=== PATIENT | female | born 1930 | race African-American/Black ===

== ENCOUNTER 2020-03-18 17:46 | Inpatient (IN) | payer MEDICARE, BC ==
[2020-03-18 18:32] LABS: #Monocytes 0.4 thou/uL (0.11-0.59); #Neutrophils 4.6 thou/uL (1.40-6.50); %Basophils 0.7 % (0.0-1.0); %Eosinophils 0.4 % (0.0-10.0); %Lymphocytes 16.1 % (21.0-51.0); %Monocytes 6.7 % (0.0-10.0); %Neutrophils 76.1 % (42.0-75.0); Hemoglobin 13.1 g/dL (12.0-16.0); Mean Corpuscular Hemoglobin 30.8 pg (27.0-31.0); Mean Corpuscular Volume 93.4 fL (78.0-98.0); Platelet Count 192 thou/uL (130-400); RBC Distribution Width 12.1 % (11.5-14.5); Red Blood Cell (RBC) Count 4.26 mill/uL (4.20-5.40)
[2020-03-18 18:52] LABS: ALT (SGPT) Less than 7 U/L (8-55); AST (SGOT) 8 U/L (5-34); Alkaline Phosphatase 87 U/L (40-110); Anion Gap 16 mmol/L (10-20); BUN (Urea Nitrogen) 23 mg/dL (9.8-20.1); Bilirubin, Total 0.7 mg/dL (0.2-1.2); Calc. Creatinine Clearance 0 mL/min (70-130); Calcium 9.4 mg/dL (7.8-10.44); Carbon Dioxide 27 mmol/L (23-31); Chloride 100 mmol/L (98-107); Globulin 2.9 g/dL (2.4-3.5); Glucose 109 mg/dL (83-110); Potassium 3.9 mmol/L (3.5-5.1); Protein, Total 6.9 g/dL (6.0-8.3); Sodium 139 mmol/L (136-145)
[2020-03-18 19:54] LABS: Bacteria/HPF None Seen HPF (None Seen); Bilirubin Negative (Negative); Blood, Urine Negative (Negative); Clarity Clear (Clear); Glucose, Urine (Dipstick) Normal (Negative); Ketone, Urine 10 mg/dL (Negative); Leukocyte Negative Leu/uL (Negative); Nitrite Negative (Negative); Protein, Urine (Dipstick) 70 mg/dL (Neg-Trace); RBC/HPF 0-3 HPF (0-3); Specific Gravity, Urine 1.029 (1.002-1.036); Squamous Epithelial 0-3 HPF (0-3); Urobilinogen Normal mg/dL (Less than 2)
--- NOTE | 2020-03-18 20:56 | CT ---
CT BRAIN NONCONTRAST: DATE: 03/18/2020 HISTORY: 89-year-old female with altered mental status FINDINGS: There is no evidence of acute intra-axial or extra-axial hemorrhage. There is no midline shift or any other mass effect. There is no extra-axial fluid collection. There is no evidence of obstructive hydrocephalus. Calvarium is intact. There is diffuse brain parenchymal volume loss. There are low att enuation areas in the white matter. These are nonspecific, but in a patient of this age, they are probably chronic ischemic white matter changes due to microvascular atherosclerosis. IMPRESSION: 1) No acute intracranial findings. 2) involutional changes and chronic ischemic white matter changes.
--- NOTE | 2020-03-18 20:58 | RAD ---
Portable frontal chest radiograph: 03/18/2020 COMPARISON: None HISTORY: Altered mental status, urinary tract infection, hallucinations FINDINGS: There is prominence of the cardiac silhouette. There is atherosclerotic calcification of th e aortic arch. There is an old clavicle fracture on the left. There is mild diffuse increased linear interstitial density with pulmonary hyperinflation. IMPRESSION: No focal consolidation or alveolar edema.
[2020-03-18] MEDS ORDERED: cefTRIAXone\\ROCEPHIN 1 GM VIAL ONE (23:26)
[2020-03-19] MEDS ORDERED: Senokot S 8.6-50 MG TAB PO PRN (00:30)
[2020-03-19] MEDS ORDERED: Sodium Chloride 0.9% 1,000 ML IV SCH (00:30)
[2020-03-19 01:34] VITALS: BMI 18.8
--- NOTE | 2020-03-19 02:16 | HP ---
PCP: Unknown. CHIEF COMPLAINT: Altered mental status. HISTORY OF PRESENT ILLNESS: Ms. Tristan is a very pleasant 89-year-old female, who reported to the emergency room today for evaluation of altered mental status and a UTI. Daughter reports that the patient was diagnosed with a UTI 4 days ago, was started on Cipro, but when the daughter went to go pick her up today, she noticed that she was not at her normal baseline. She does have a history of dementia and Parkinson's, but she was not at her baseline and was having some hallucinations, so she wanted to have her evaluated. Daughter reports that her current symptoms happened with previous episodes of a UTI. Her ER workup was largely unremarkable. Urine protein positive for protein, ketones, or white blood cells. Culture was sent. She was given a dose of Rocephin in the emergency room. She was on Cipro as an outpatient and then admitted to the medical unit for further evaluation. She did have a CT scan of the brain, which showed no acute changes. She had a chest x-ray, which was also negative for acute changes. REVIEW OF SYSTEMS: Mental status changes recently diagnosed with the UTI. The patient is alert to person only, which is baseline. PAST MEDICAL HISTORY: Parkinson's, dementia, GERD, osteoporosis. SURGICAL HISTORY: Left knee surgery, appendectomy, hysterectomy, and tubal ligation. PSYCH HISTORY: Depression. SOCIAL HISTORY: Lives at [facility]. They denied any alcohol , drug, or smoking history. ALLERGIES: NONE. CURRENT MEDICATIONS: 1. Amantadine 100 mg p.o. b.i.d. 2. Aspirin 81 mg p.o. b.i.d. 3. Levodopa and carbidopa 25/100 b.i.d. 4. Cipro 500 mg p.o. b.i.d. 5. Colace 100 mg three times a week. 6. Vitamin B12 once a day. 7. Lexapro 10 mg p.o. once a day. 8. Pepcid 20 mg p.o. once a day. 9. Keflex 500 mg p.o. b.i.d. 10. Milk of magnesium 1 cup p.r.n. PHYSICAL EXAMINATION: VITAL SIGNS: Blood pressure 154/68, pulse is 59, respiratory rate is 18, temperature is 97.9, PO2 sats are 98% on room air. CONSTITUTIONAL: The patient is oriented to person. She does answer questions appropriately. She denied being in any pain. HEENT: Head is atraumatic and normocephalic. Eyes, pupils are equal, round, and reactive to light. NECK: Normal range of motion. Trachea is midline. RESPIRATORY: Chest breath sounds are clear. Chest expansion is equal. CARDIOVASCULAR: Regular rate and rhythm. Heart sounds are normal. ABDOMEN: Nontender. Bowel sounds are heard. BACK: Normal range of motion. Motor strength is normal. EXTREMITIES: Moves all extremities. Pulses are equal. NEURO: She is oriented to person. PLAN/ASSESSMENT: 1. Altered mental status with recent diagnosis of urinary tract infection. Urine culture is pending. ER gave the patient Rocephin 1 g. We will continue this daily. Normal saline at 75 mL an hour. Recheck labs in the morning. Urine culture pending. We will have PT consulted. 2. History of dementia. We will continue her home medications. 3. History of Parkinson's. We will continue her home medications. 4. Deep venous thrombosis and gastrointestinal prophylaxis started. 5. Hospital course dependent on clinical findings. Job ID: [id number]
[2020-03-19] MEDS ORDERED: Milk Of Magnesia 30 ML UDCUP PO PRN (04:51)
[2020-03-19 06:21] LABS: #Lymphocytes 0.9 thou/uL (1.20-3.40); #Monocytes 0.4 thou/uL (0.11-0.59); #Neutrophils 4.1 thou/uL (1.40-6.50); %Basophils 0.7 % (0.0-1.0); %Eosinophils 0.2 % (0.0-10.0); %Monocytes 6.9 % (0.0-10.0); %Neutrophils 75.2 % (42.0-75.0); Hemoglobin 12.8 g/dL (12.0-16.0); Mean Corpuscular HGB CONC 33.5 g/dL (32.0-36.0); Mean Corpuscular Hemoglobin 30.9 pg (27.0-31.0); Mean Corpuscular Volume 92.1 fL (78.0-98.0); Mean Platelet Volume 8.9 fL (7.4-10.4); Platelet Count 180 thou/uL (130-400); RBC Distribution Width 11.9 % (11.5-14.5); Red Blood Cell (RBC) Count 4.14 mill/uL (4.20-5.40); White Blood Cell (WBC) Count 5.4 thou/uL (4.8-10.8)
[2020-03-19 06:49] LABS: ALT (SGPT) Less than 7 U/L (8-55); AST (SGOT) 8 U/L (5-34); Albumin 3.7 g/dL (3.4-4.8); Alkaline Phosphatase 85 U/L (40-110); Anion Gap 16 mmol/L (10-20); BUN (Urea Nitrogen) 15 mg/dL (9.8-20.1); Bilirubin, Total 0.6 mg/dL (0.2-1.2); Calc. Creatinine Clearance 46 mL/min (70-130); Calcium 8.7 mg/dL (7.8-10.44); Carbon Dioxide 24 mmol/L (23-31); Chloride 102 mmol/L (98-107); Globulin 2.8 g/dL (2.4-3.5); Glucose 93 mg/dL (83-110); Potassium 3.3 mmol/L (3.5-5.1); Protein, Total 6.5 g/dL (6.0-8.3); Sodium 139 mmol/L (136-145)
[2020-03-19] MEDS: Cyanocobalamin (Vitamin B-12) 1,000 MCG TAB PO SCH (08:21)
[2020-03-19] MEDS: Amantadine HCl 100 mg Capsule PO SCH ×2 (08:21→20:35)
[2020-03-19] MEDS: Aspirin 81 mg Enteric Coated Tablet PO SCH (08:21)
[2020-03-19] MEDS: Enoxaparin Sodium 40 MG/0.4 ML SYRINGE SC SCH (08:22)
[2020-03-19] MEDS: Famotidine 20 MG TAB PO SCH ×2 (08:22→21:05)
[2020-03-19] MEDS: Escitalopram Oxalate 10 mg Tablet PO SCH (08:22)
[2020-03-19] MEDS: Carbidopa/Levodopa 25-100 mg Tablet PO SCH ×4 (08:22→20:35)
--- NOTE | 2020-03-19 14:23 | PDOC.HOSPP ---
- Subjective Encounter Date: 03/19/20 Encounter Time: 10:20 Subjective: Patient up in bed oriented x2 - Objective Vital Signs & Weight: Vital Signs (12 hours) Temp Pulse Resp BP BP Pulse Ox 03/19/20 11:50 97.7 F 62 18 142/58 H 97 03/19/20 08:00 97.6 F 64 18 178/74 H 96 03/19/20 04:45 98.2 F 72 16 120/72 98 Weight Weight 103 lb 4.8 oz Result Diagrams: 03/19/20 06:03 03/19/20 06:03 Hospitalist ROS - Review of Systems Cardiovascular: denies: chest pain, palpitations, orthopnea, paroxysmal noc. dyspnea, edema, light headedness, other Gastrointestinal: denies: nausea, vomiting, abdominal pain, diarrhea, constipation, melena, hematochezia, other Genitourinary: denies: dysuria, frequency, incontinence, hematuria, retention, other - Medication Medications: Active Medications Generic Name Dose Route Start Last Admin Trade Name Freq PRN Reason Stop Dose Admin Amantadine HCl 100 mg 03/19/20 09:00 03/19/20 08:21 Amantadine Hcl 100 Mg Capsule PO 100 mg BID DHARMESH Administration Aspirin 81 mg 03/19/20 09:00 03/19/20 08:21 Aspirin 81 Mg Enteric Coated Tablet PO 81 mg DAILY DHARMESH Administration Carbidopa/Levodopa 2 tab 03/19/20 09:00 03/19/20 08:22 Carbidopa/Levodopa 25-100 Mg Tablet PO 2 tab Q4HR DHARMESH Administration Cyanocobalamin 1,000 mcg 03/19/20 09:00 03/19/20 08:21 Cyanocobalamin (Vitamin B-12) 1,000 Mcg Tab PO 1,000 mcg DAILY DHARMESH Administration Enoxaparin Sodium 40 mg 03/19/20 09:00 03/19/20 08:22 Enoxaparin Sodium 40 Mg/0.4 Ml Syringe SC 40 mg 09 DHARMESH Administration Escitalopram Oxalate 10 mg 03/19/20 09:00 03/19/20 08:22 Escitalopram Oxalate 10 Mg Tablet PO 10 mg DAILY DHARMESH Administration Famotidine 20 mg 03/19/20 09:00 03/19/20 08:22 Famotidine 20 Mg Tab PO 20 mg BID DHARMESH Administration - Exam Neck: negative: supple, symmetric, no JVD, no thyromegaly, no lymphadenopathy, no carotid bruit, JVD Heart: negative: RRR, no murmur, no gallops, no rubs, normal peripheral pulses, irregular, diminshed peripheral pulses, murmur present, II/IV, III/IV Respiratory: negative: CTAB, no wheezes, no rales, no ronchi, normal chest expansion, no tachypnea, normal percussion, rales, rhonchi, tachypneic, wheezes Gastrointestinal: negative: soft, non-tender, non-distended, normal bowel sounds, no palpable masses, no hepatomegaly, no splenomegaly, no bruit, no guarding, no rigidity, tender to palpation, distended, diminished bowl sounds, voluntary guarding Hosp A/P (1) Acute metabolic encephalopathy Code(s): G93.41 - METABOLIC ENCEPHALOPATHY Status: Acute (2) UTI (urinary tract infection) Status: Acute (3) Dementia Code(s): F03.90 - UNSPECIFIED DEMENTIA WITHOUT BEHAVIORAL DISTURBANCE Status: Acute (4) Vitamin B1 deficiency Code(s): E51.9 - THIAMINE DEFICIENCY, UNSPECIFIED Status: Acute - Plan Patient up in bed oriented x2. Daughter at bedside. We will continue current antibiotics. Urine culture indicates E. coli. Will get speech to to evaluate patient.
[2020-03-19 20:10] LABS: SARS-CoV-2 MS2 Positive; SARS-CoV-2 N Gene Negative; SARS-CoV-2 S Gene Negative; SARS-CoV-2 by NAA Not Detected (NotDetected); SARS-CoV-2 orf1ab Negative
[2020-03-19] MEDS: Acetaminophen 325 MG TAB PO PRN (20:36)
[2020-03-19] MEDS: cefTRIAXone\\ROCEPHIN 1 GM in Sodium Chloride 0.9% 100 ML IVPB SCH (20:48)
[2020-03-19] MEDS ORDERED: FLU VACC QS2020-21(65YR UP)/PF 240 MCG/0.7 ML SYRINGE IM ONE (21:00)
[2020-03-20] MEDS: Carbidopa/Levodopa 25-100 mg Tablet PO SCH ×6 (00:44→21:30)
[2020-03-20] MEDS: Escitalopram Oxalate 10 mg Tablet PO SCH (09:14)
[2020-03-20] MEDS: Enoxaparin Sodium 40 MG/0.4 ML SYRINGE SC SCH (09:15)
[2020-03-20] MEDS: Amantadine HCl 100 mg Capsule PO SCH ×2 (09:15→21:30)
[2020-03-20] MEDS: Aspirin 81 mg Enteric Coated Tablet PO SCH (09:15)
[2020-03-20] MEDS: Cyanocobalamin (Vitamin B-12) 1,000 MCG TAB PO SCH ×2 (09:15→13:23)
[2020-03-20] MEDS ORDERED: Potassium Chloride 10 MEQ in Premix Bag 1 BAG IVPB SCH (09:15)
[2020-03-20] MEDS: Docusate 100 MG CAP PO SCH (09:15)
[2020-03-20] MEDS: Dextrose 5 % And 0.9 % NaCl 1,000 ML IV SCH (10:47)
[2020-03-20] MEDS ORDERED: Cyanocobalamin 1000 MCG/ML VIAL IM SCH (11:00)
[2020-03-20] MEDS: Famotidine 20 MG TAB PO SCH (11:04)
--- NOTE | 2020-03-20 13:46 | PDOC.HOSPP ---
- Subjective Encounter Date: 03/20/20 Encounter Time: 10:30 Subjective: pt up in bed oriented x2 - Objective Vital Signs & Weight: Vital Signs (12 hours) Temp Pulse Resp BP Pulse Ox 03/20/20 11:30 97.6 F 52 L 18 137/57 L 98 03/20/20 08:45 94 L 03/20/20 07:27 97.6 F 53 L 16 168/70 H 94 L 03/20/20 05:36 98 03/20/20 05:00 97.8 F 65 18 149/76 H 98 Weight Weight 103 lb 4.8 oz I&O: 03/19/20 03/20/20 03/21/20 06:59 06:59 06:59 Intake Total 500 Output Total 1100 Balance -600 Result Diagrams: 03/19/20 06:03 03/19/20 06:03 Hospitalist ROS - Review of Systems Cardiovascular: denies: chest pain, palpitations, orthopnea, paroxysmal noc. dyspnea, edema, light headedness, other Gastrointestinal: denies: nausea, vomiting, abdominal pain, diarrhea, constipation, melena, hematochezia, other - Medication Medications: Active Medications Generic Name Dose Route Start Last Admin Trade Name Freq PRN Reason Stop Dose Admin Acetaminophen 650 mg 03/19/20 00:30 03/19/20 20:36 Acetaminophen 325 Mg Tab PO 650 mg Q4H PRN Administration Headache/Fever/Mild Pain (1-3) Amantadine HCl 100 mg 03/19/20 09:00 03/20/20 09:15 Amantadine Hcl 100 Mg Capsule PO Not Given BID DHARMESH Aspirin 81 mg 03/19/20 09:00 03/20/20 09:15 Aspirin 81 Mg Enteric Coated Tablet PO Not Given DAILY DHARMESH Carbidopa/Levodopa 2 tab 03/19/20 09:00 03/20/20 13:23 Carbidopa/Levodopa 25-100 Mg Tablet PO 2 tab Q4HR DHARMESH Administration Cyanocobalamin 1,000 mcg 03/19/20 09:00 03/20/20 13:23 Cyanocobalamin (Vitamin B-12) 1,000 Mcg Tab PO 1,000 mcg DAILY DHARMESH Administration Docusate Sodium 100 mg 03/20/20 09:00 03/20/20 09:15 Docusate 100 Mg Cap PO Not Given MWF DHARMESH Enoxaparin Sodium 40 mg 03/19/20 09:00 03/20/20 09:15 Enoxaparin Sodium 40 Mg/0.4 Ml Syringe SC 40 mg 09 DHARMESH Administration Escitalopram Oxalate 10 mg 03/19/20 09:00 03/20/20 09:14 Escitalopram Oxalate 10 Mg Tablet PO 10 mg DAILY DHARMESH Administration Ceftriaxone Sodium 1 gm/ 100 mls @ 200 mls/hr 03/19/20 21:00 03/19/20 20:48 Sodium Chloride IVPB 100 mls Q24HR DHARMESH Administration Dextrose/Sodium Chloride 1,000 mls @ 50 mls/hr 03/20/20 09:15 03/20/20 10:47 D5 0.9% Ns IV 1,000 mls .Q20H DHARMESH Administration - Exam Heart: negative: RRR, no murmur, no gallops, no rubs, normal peripheral pulses, irregular, diminshed peripheral pulses, murmur present, II/IV, III/IV Respiratory: negative: CTAB, no wheezes, no rales, no ronchi, normal chest expansion, no tachypnea, normal percussion, rales, rhonchi, tachypneic, wheezes Gastrointestinal: negative: soft, non-tender, non-distended, normal bowel sounds, no palpable masses, no hepatomegaly, no splenomegaly, no bruit, no guarding, no rigidity, tender to palpation, distended, diminished bowl sounds, voluntary guarding Hosp A/P (1) Acute metabolic encephalopathy Code(s): G93.41 - METABOLIC ENCEPHALOPATHY Status: Acute (2) UTI (urinary tract infection) Status: Acute (3) Dementia Code(s): F03.90 - UNSPECIFIED DEMENTIA WITHOUT BEHAVIORAL DISTURBANCE Status: Acute (4) Vitamin B1 deficiency Code(s): E51.9 - THIAMINE DEFICIENCY, UNSPECIFIED Status: Acute - Plan Patient up in bed oriented x2. Daughter at bedside. We will continue current antibiotics. Urine culture indicates E. coli. Will get speech to to evaluate patient. 03/20 will continue current tx. Speech saw the pt who recommended initially npo given her high risk for aspiration but then when pt's daughter came by she was more awake and we reevaluated her and she was able to tolerate pureed diet with honey thick liquids. spoke with case management that pt will need a high level of care. Plan discussed with pt's daughter.
--- NOTE | 2020-03-20 14:02 | PDOC.FMACP ---
Advance Care Planning - Problem (1) Acute metabolic encephalopathy Status: Acute Code(s): G93.41 - METABOLIC ENCEPHALOPATHY (2) UTI (urinary tract infection) Status: Acute (3) Dementia Status: Acute Code(s): F03.90 - UNSPECIFIED DEMENTIA WITHOUT BEHAVIORAL DISTURBANCE (4) Vitamin B1 deficiency Status: Acute Code(s): E51.9 - THIAMINE DEFICIENCY, UNSPECIFIED - Note Summary: Advanced Care Planning was discussed. The diagnosis, prognosis and goals of care were discussed. Appropriate forms and documentation to accomplish the goals of care were discussed. All questions were answered. The Palliative Care Team will be engaged to assist with completion of any outstanding forms that are needed. spoke with pt's son about resuscitation given her dementia outcome would not be good. Family wants pt to be DNAR. spend 20m discussing CODE STATUS with family.
--- NOTE | 2020-03-20 16:17 | ULT ---
LEFT LOWER EXTREMITY VENOUS DOPPLER 03/20/20 PROVIDED CLINICAL HISTORY: Left leg pain. FINDINGS: Og scale and color Doppler sonography with spectral analysis was performed of the left common femor al, femoral, popliteal, posterior tibial, greater saphenous and profunda femoral veins demonstrating normal sonographic appearance to each. IMPRESSION: No sonographic evidence for left lower extremity deep venous thrombosis. POS: MATY
[2020-03-20] MEDS: Acetaminophen 325 MG TAB PO PRN (17:25)
[2020-03-20] MEDS: cefTRIAXone\\ROCEPHIN 1 GM in Sodium Chloride 0.9% 100 ML IVPB SCH (21:31)
[2020-03-20] MEDS: Famotidine/PF 20 mg/2ml Vial SLOW IVP SCH (21:31)
[2020-03-21] MEDS: Carbidopa/Levodopa 25-100 mg Tablet PO SCH ×6 (01:41→20:36)
[2020-03-21] MEDS: Dextrose 5 % And 0.9 % NaCl 1,000 ML IV SCH (05:34)
[2020-03-21] MEDS: Cyanocobalamin (Vitamin B-12) 1,000 MCG TAB PO SCH (09:00)
[2020-03-21] MEDS: Escitalopram Oxalate 10 mg Tablet PO SCH (09:00)
[2020-03-21] MEDS: Enoxaparin Sodium 40 MG/0.4 ML SYRINGE SC SCH (09:00)
[2020-03-21] MEDS: Aspirin 81 mg Enteric Coated Tablet PO SCH (09:00)
[2020-03-21] MEDS: Famotidine/PF 20 mg/2ml Vial SLOW IVP SCH ×2 (09:00→20:36)
[2020-03-21] MEDS: Amantadine HCl 100 mg Capsule PO SCH ×2 (09:07→20:36)
--- NOTE | 2020-03-21 15:36 | PDOC.HOSPP ---
- Subjective Encounter Date: 03/21/20 Encounter Time: 11:15 Subjective: Patient up in bed oriented x1 continues to speak very softly. - Objective Vital Signs & Weight: Vital Signs (12 hours) Temp Pulse Resp BP Pulse Ox 03/21/20 09:00 96 03/21/20 08:00 98.0 F 60 16 164/83 H 96 Weight Admit Weight 103 lb Weight 103 lb 4.8 oz I&O: 03/20/20 03/21/20 03/22/20 06:59 06:59 06:59 Intake Total 500 1540 Output Total 1100 550 Balance -600 990 Result Diagrams: 03/19/20 06:03 03/19/20 06:03 Hospitalist ROS - Review of Systems Other: Unable to obtain - Medication Medications: Active Medications Generic Name Dose Route Start Last Admin Trade Name Freq PRN Reason Stop Dose Admin Acetaminophen 650 mg 03/19/20 00:30 03/20/20 17:25 Acetaminophen 325 Mg Tab PO 650 mg Q4H PRN Administration Headache/Fever/Mild Pain (1-3) Amantadine HCl 100 mg 03/19/20 09:00 03/21/20 09:07 Amantadine Hcl 100 Mg Capsule PO 100 mg BID DHARMESH Administration Aspirin 81 mg 03/19/20 09:00 03/21/20 09:00 Aspirin 81 Mg Enteric Coated Tablet PO 81 mg DAILY DHARMESH Administration Carbidopa/Levodopa 2 tab 03/19/20 09:00 03/21/20 13:35 Carbidopa/Levodopa 25-100 Mg Tablet PO 2 tab Q4HR DHARMESH Administration Cyanocobalamin 1,000 mcg 03/19/20 09:00 03/21/20 09:00 Cyanocobalamin (Vitamin B-12) 1,000 Mcg Tab PO 1,000 mcg DAILY DHARMESH Administration Docusate Sodium 100 mg 03/20/20 09:00 03/20/20 09:15 Docusate 100 Mg Cap PO Not Given MW DHARMESH Enoxaparin Sodium 40 mg 03/19/20 09:00 03/21/20 09:00 Enoxaparin Sodium 40 Mg/0.4 Ml Syringe SC 40 mg 0900 DHARMESH Administration Escitalopram Oxalate 10 mg 03/19/20 09:00 03/21/20 09:00 Escitalopram Oxalate 10 Mg Tablet PO 10 mg DAILY DHARMESH Administration Famotidine 20 mg 03/20/20 21:00 03/21/20 09:00 Famotidine/Pf 20 Mg/2ml Vial SLOW IVP 20 mg BID DHARMESH Administration Ceftriaxone Sodium 1 gm/ 100 mls @ 200 mls/hr 03/19/20 21:00 03/20/20 21:31 Sodium Chloride IVPB 100 mls Q24HR DHARMESH Administration Dextrose/Sodium Chloride 1,000 mls @ 50 mls/hr 03/20/20 09:15 03/21/20 05:34 D5 0.9% Ns IV 1,000 mls .Q20H DHARMESH Administration Sodium Chloride 10 ml 03/20/20 21:00 03/21/20 09:01 Flush - Normal Saline 10 Ml Syringe IVF Not Given Q12HR DHARMESH - Exam Heart: negative: RRR, no murmur, no gallops, no rubs, normal peripheral pulses, irregular, diminshed peripheral pulses, murmur present, II/IV, III/IV Respiratory: negative: CTAB, no wheezes, no rales, no ronchi, normal chest expansion, no tachypnea, normal percussion, rales, rhonchi, tachypneic, wheezes Gastrointestinal: negative: soft, non-tender, non-distended, normal bowel sounds, no palpable masses, no hepatomegaly, no splenomegaly, no bruit, no guarding, no rigidity, tender to palpation, distended, diminished bowl sounds, voluntary guarding Extremities: 1+ LE edema Hosp A/P (1) Acute metabolic encephalopathy Code(s): G93.41 - METABOLIC ENCEPHALOPATHY Status: Acute (2) UTI (urinary tract infection) Status: Acute (3) Dementia Code(s): F03.90 - UNSPECIFIED DEMENTIA WITHOUT BEHAVIORAL DISTURBANCE Status: Acute (4) Vitamin B1 deficiency Code(s): E51.9 - THIAMINE DEFICIENCY, UNSPECIFIED Status: Acute - Plan Patient up in bed oriented x2. Daughter at bedside. We will continue current antibiotics. Urine culture indicates E. coli. Will get speech to to evaluate patient. 03/20 will continue current tx. Speech saw the pt who recommended initially npo given her high risk for aspiration but then when pt's daughter came by she was more awake and we reevaluated her and she was able to tolerate pureed diet with honey thick liquids. spoke with case management that pt will need a high level of care. Plan discussed with pt's daughter. 03/21 per nursing staff patient ate about 30% of her food. She is oriented currently only to self. We will continue current antibiotics. Her previous E. coli was resistant to ciprofloxacin. Possible discharge to higher level of [facility]. Have asked the nursing staff to get patient up in chair.
[2020-03-21] MEDS: cefTRIAXone\\ROCEPHIN 1 GM in Sodium Chloride 0.9% 100 ML IVPB SCH (20:36)
[2020-03-22] MEDS: Carbidopa/Levodopa 25-100 mg Tablet PO SCH ×6 (00:32→20:00)
[2020-03-22] MEDS: Dextrose 5 % And 0.9 % NaCl 1,000 ML IV SCH ×3 (00:37→20:09)
[2020-03-22] MEDS: Enoxaparin Sodium 40 MG/0.4 ML SYRINGE SC SCH (08:22)
[2020-03-22] MEDS: Famotidine/PF 20 mg/2ml Vial SLOW IVP SCH ×2 (08:22→20:01)
[2020-03-22] MEDS: Cyanocobalamin (Vitamin B-12) 1,000 MCG TAB PO SCH (08:23)
[2020-03-22] MEDS: Amantadine HCl 100 mg Capsule PO SCH ×2 (08:23→20:01)
[2020-03-22] MEDS: Escitalopram Oxalate 10 mg Tablet PO SCH (08:23)
[2020-03-22] MEDS: Aspirin 81 mg Enteric Coated Tablet PO SCH (08:23)
--- NOTE | 2020-03-22 16:51 | PDOC.HOSPP ---
- Subjective Encounter Date: 03/22/20 Encounter Time: 11:15 Subjective: pt asleep - Objective Vital Signs & Weight: Vital Signs (12 hours) Temp Pulse Resp BP Pulse Ox 03/22/20 08:00 97.1 F L 69 16 145/74 H 97 Weight Admit Weight 103 lb Weight 103 lb 4.8 oz I&O: 03/21/20 03/22/20 03/23/20 06:59 06:59 06:59 Intake Total 1540 1696 Output Total 550 1050 Balance 990 646 Result Diagrams: 03/19/20 06:03 03/19/20 06:03 Hospitalist ROS - Review of Systems Other: unable to obtain - Medication Medications: Active Medications Generic Name Dose Route Start Last Admin Trade Name Freq PRN Reason Stop Dose Admin Acetaminophen 650 mg 03/19/20 00:30 03/20/20 17:25 Acetaminophen 325 Mg Tab PO 650 mg Q4H PRN Administration Headache/Fever/Mild Pain (1-3) Amantadine HCl 100 mg 03/19/20 09:00 03/22/20 08:23 Amantadine Hcl 100 Mg Capsule PO 100 mg BID DHARMESH Administration Aspirin 81 mg 03/19/20 09:00 03/22/20 08:23 Aspirin 81 Mg Enteric Coated Tablet PO 81 mg DAILY DHARMESH Administration Carbidopa/Levodopa 2 tab 03/19/20 09:00 03/22/20 16:06 Carbidopa/Levodopa 25-100 Mg Tablet PO 2 tab Q4HR DHARMESH Administration Cyanocobalamin 1,000 mcg 03/19/20 09:00 03/22/20 08:23 Cyanocobalamin (Vitamin B-12) 1,000 Mcg Tab PO 1,000 mcg DAILY DHARMESH Administration Docusate Sodium 100 mg 03/20/20 09:00 03/20/20 09:15 Docusate 100 Mg Cap PO Not Given [facility] DHARMESH Enoxaparin Sodium 40 mg 03/19/20 09:00 03/22/20 08:22 Enoxaparin Sodium 40 Mg/0.4 Ml Syringe SC 40 mg 09 DHARMESH Administration Escitalopram Oxalate 10 mg 03/19/20 09:00 03/22/20 08:23 Escitalopram Oxalate 10 Mg Tablet PO 10 mg DAILY DHARMESH Administration Famotidine 20 mg 03/20/20 21:00 03/22/20 08:22 Famotidine/Pf 20 Mg/2ml Vial SLOW IVP 20 mg BID DHARMESH Administration Ceftriaxone Sodium 1 gm/ 100 mls @ 200 mls/hr 03/19/20 21:00 03/21/20 20:36 Sodium Chloride IVPB 100 mls Q24HR DHARMESH Administration Dextrose/Sodium Chloride 1,000 mls @ 50 mls/hr 03/20/20 09:15 03/22/20 00:37 D5 0.9% Ns IV 1,000 mls .Q20H DHARMESH Administration Sodium Chloride 10 ml 03/20/20 21:00 03/22/20 08:23 Flush - Normal Saline 10 Ml Syringe IVF 10 ml Q12HR DHARMESH Administration - Exam Neck: negative: supple, symmetric, no JVD, no thyromegaly, no lymphadenopathy, no carotid bruit, JVD Heart: negative: RRR, no murmur, no gallops, no rubs, normal peripheral pulses, irregular, diminshed peripheral pulses, murmur present, II/IV, III/IV Respiratory: negative: CTAB, no wheezes, no rales, no ronchi, normal chest expansion, no tachypnea, normal percussion, rales, rhonchi, tachypneic, wheezes Gastrointestinal: negative: soft, non-tender, non-distended, normal bowel sounds, no palpable masses, no hepatomegaly, no splenomegaly, no bruit, no guarding, no rigidity, tender to palpation, distended, diminished bowl sounds, voluntary guarding Hosp A/P (1) Acute metabolic encephalopathy Code(s): G93.41 - METABOLIC ENCEPHALOPATHY Status: Acute (2) UTI (urinary tract infection) Status: Acute (3) Dementia Code(s): F03.90 - UNSPECIFIED DEMENTIA WITHOUT BEHAVIORAL DISTURBANCE Status: Acute (4) Vitamin B1 deficiency Code(s): E51.9 - THIAMINE DEFICIENCY, UNSPECIFIED Status: Acute - Plan Patient up in bed oriented x2. Daughter at bedside. We will continue current antibiotics. Urine culture indicates E. coli. Will get speech to to evaluate patient. 03/20 will continue current tx. Speech saw the pt who recommended initially npo given her high risk for aspiration but then when pt's daughter came by she was more awake and we reevaluated her and she was able to tolerate pureed diet with honey thick liquids. spoke with case management that pt will need a high level of care. Plan discussed with pt's daughter. 03/21 per nursing staff patient ate about 30% of her food. She is oriented currently only to self. We will continue current antibiotics. Her previous E. coli was resistant to ciprofloxacin. Possible discharge to higher level of nursing care. Have asked the nursing staff to get patient up in chair. 03/22 patient sleeping today. We will continue current antibiotics. Patient was assisted up to chair by nursing staff yesterday she was a max assist per staff. We will continue current antibiotics.
[2020-03-22] MEDS: cefTRIAXone\\ROCEPHIN 1 GM in Sodium Chloride 0.9% 100 ML IVPB SCH (20:05)
[2020-03-23] MEDS: Carbidopa/Levodopa 25-100 mg Tablet PO SCH ×7 (00:48→20:22)
[2020-03-23 06:49] LABS: Band 38 % (5-11); Hemoglobin 11.4 g/dL (12.0-16.0); Lymphocytes 4 % (21-51); MDiff Complete? YES; Mean Corpuscular HGB CONC 33.4 g/dL (32.0-36.0); Mean Corpuscular Hemoglobin 30.6 pg (27.0-31.0); Mean Corpuscular Volume 91.6 fL (78.0-98.0); Mean Platelet Volume 9.5 fL (7.4-10.4); Neutrophil 58 % (42-75); Platelet Count 156 thou/uL (130-400); Platelet Morphology Comment Appears Adequate; RBC Distribution Width 11.9 % (11.5-14.5); Red Blood Cell (RBC) Count 3.72 mill/uL (4.20-5.40); White Blood Cell (WBC) Count 14.3 thou/uL (4.8-10.8)
[2020-03-23 06:50] LABS: ALT (SGPT) Less than 7 U/L (8-55); AST (SGOT) 9 U/L (5-34); Albumin 3.2 g/dL (3.4-4.8); Alkaline Phosphatase 79 U/L (40-110); Anion Gap 10 mmol/L (10-20); BUN (Urea Nitrogen) 13 mg/dL (9.8-20.1); Bilirubin, Total 0.6 mg/dL (0.2-1.2); Calc. Creatinine Clearance 52 mL/min (70-130); Calcium 8.3 mg/dL (7.8-10.44); Carbon Dioxide 28 mmol/L (23-31); Chloride 105 mmol/L (98-107); Globulin 2.5 g/dL (2.4-3.5); Glucose 151 mg/dL (83-110); Magnesium 1.5 mg/dL (1.6-2.6); Protein, Total 5.7 g/dL (6.0-8.3); Sodium 141 mmol/L (136-145)
[2020-03-23 06:54] LABS: Potassium 2.4 mmol/L (3.5-5.1)
[2020-03-23] MEDS ORDERED: Potassium Chloride 10 MEQ in Premix Bag 1 BAG IVPB SCH ×2 (08:15→11:15)
[2020-03-23] MEDS: Enoxaparin Sodium 40 MG/0.4 ML SYRINGE SC SCH (08:31)
[2020-03-23] MEDS: Famotidine/PF 20 mg/2ml Vial SLOW IVP SCH ×2 (08:31→20:17)
[2020-03-23] MEDS: Potassium Chloride 20 MEQ TAB PO SCH ×2 (08:32→10:55)
[2020-03-23] MEDS: Docusate 100 MG CAP PO SCH ×2 (08:32→09:04)
[2020-03-23] MEDS: Amantadine HCl 100 mg Capsule PO SCH ×3 (08:32→20:21)
[2020-03-23] MEDS: Escitalopram Oxalate 10 mg Tablet PO SCH ×2 (08:32→09:04)
[2020-03-23] MEDS: Cyanocobalamin (Vitamin B-12) 1,000 MCG TAB PO SCH ×2 (08:32→09:04)
[2020-03-23] MEDS: Aspirin 81 mg Enteric Coated Tablet PO SCH ×2 (08:32→09:04)
[2020-03-23] MEDS ORDERED: Cyanocobalamin 1000 MCG/ML VIAL IM SCH (11:15)
--- NOTE | 2020-03-23 11:53 | RAD ---
Exam: Chest one view HISTORY:Shortness of breath Comparison: 03/18/2020 FINDINGS: Cardiac silhouette: Normal Aorta: Atherosclerotic Pulmonary vessels: Normal Costophrenic angles: Clear LUNGS: Hyperinflated with chronic changes. There is a developing left lower lobe infiltrate. Pneumothorax: None Osseous abnormalities: Remote left clavicle fracture. IMPRESSION: 1. COPD. Hyperinflation. 2. Left lower lobe infiltrate. Continued surveillance to ensure resolution. 3. Atherosclerosis.
--- NOTE | 2020-03-23 15:07 | PDOC.HOSPP ---
- Subjective Encounter Date: 03/23/20 Encounter Time: 10:30 Subjective: Patient very somnolent. She is arousable on sternal rub and follows commands. She continues to be speaking very softly. - Objective Vital Signs & Weight: Vital Signs (12 hours) Temp Pulse Resp BP Pulse Ox 03/23/20 08:00 94 L 03/23/20 07:34 98.0 F 58 L 16 135/60 94 L Weight Admit Weight 103 lb Weight 103 lb 4.8 oz I&O: 03/22/20 03/23/20 03/24/20 06:59 06:59 06:59 Intake Total 1696 1350 Output Total 1050 Balance 646 1350 Result Diagrams: 03/23/20 06:04 03/23/20 06:04 Hospitalist ROS - Review of Systems Other: Unable to obtain - Medication Medications: Active Medications Generic Name Dose Route Start Last Admin Trade Name Freq PRN Reason Stop Dose Admin Acetaminophen 650 mg 03/19/20 00:30 03/20/20 17:25 Acetaminophen 325 Mg Tab PO 650 mg Q4H PRN Administration Headache/Fever/Mild Pain (1-3) Amantadine HCl 100 mg 03/19/20 09:00 03/23/20 09:04 Amantadine Hcl 100 Mg Capsule PO Not Given BID DHARMESH Aspirin 81 mg 03/19/20 09:00 03/23/20 09:04 Aspirin 81 Mg Enteric Coated Tablet PO Not Given DAILY DHARMESH Carbidopa/Levodopa 2 tab 03/19/20 09:00 03/23/20 13:11 Carbidopa/Levodopa 25-100 Mg Tablet PO 2 tab Q4HR DHARMESH Administration Cyanocobalamin 1,000 mcg 03/19/20 09:00 03/23/20 09:04 Cyanocobalamin (Vitamin B-12) 1,000 Mcg Tab PO Not Given DAILY DHARMESH Docusate Sodium 100 mg 03/20/20 09:00 03/23/20 09:04 Docusate 100 Mg Cap PO Not Given MWF DHARMESH Enoxaparin Sodium 40 mg 03/19/20 09:00 03/23/20 08:31 Enoxaparin Sodium 40 Mg/0.4 Ml Syringe SC 40 mg 0900 DHARMESH Administration Escitalopram Oxalate 10 mg 03/19/20 09:00 03/23/20 09:04 Escitalopram Oxalate 10 Mg Tablet PO Not Given DAILY DHARMESH Famotidine 20 mg 03/20/20 21:00 03/23/20 08:31 Famotidine/Pf 20 Mg/2ml Vial SLOW IVP 20 mg BID DHARMESH Administration Dextrose/Sodium Chloride 1,000 mls @ 50 mls/hr 03/20/20 09:15 03/22/20 20:09 D5 0.9% Ns IV 1,000 mls .Q20H DHARMESH Administration Sodium Chloride 10 ml 03/20/20 21:00 03/23/20 08:32 Flush - Normal Saline 10 Ml Syringe IVF 10 ml Q12HR DHARMESH Administration - Exam Neck: negative: supple, symmetric, no JVD, no thyromegaly, no lymphadenopathy, no carotid bruit, JVD Heart: negative: RRR, no murmur, no gallops, no rubs, normal peripheral pulses, irregular, diminshed peripheral pulses, murmur present, II/IV, III/IV Respiratory: negative: CTAB, no wheezes, no rales, no ronchi, normal chest expansion, no tachypnea, normal percussion, rales, rhonchi, tachypneic, wheezes Gastrointestinal: negative: soft, non-tender, non-distended, normal bowel sounds, no palpable masses, no hepatomegaly, no splenomegaly, no bruit, no guarding, no rigidity, tender to palpation, distended, diminished bowl sounds, voluntary guarding Hosp A/P (1) Acute metabolic encephalopathy Code(s): G93.41 - METABOLIC ENCEPHALOPATHY Status: Acute (2) UTI (urinary tract infection) Status: Acute (3) Dementia Code(s): F03.90 - UNSPECIFIED DEMENTIA WITHOUT BEHAVIORAL DISTURBANCE Status: Acute (4) Vitamin B1 deficiency Code(s): E51.9 - THIAMINE DEFICIENCY, UNSPECIFIED Status: Acute - Plan Patient up in bed oriented x2. Daughter at bedside. We will continue current antibiotics. Urine culture indicates E. coli. Will get speech to to evaluate patient. 03/20 will continue current tx. Speech saw the pt who recommended initially npo given her high risk for aspiration but then when pt's daughter came by she was more awake and we reevaluated her and she was able to tolerate pureed diet with honey thick liquids. spoke with case management that pt will need a high level of care. Plan discussed with pt's daughter. 03/21 per nursing staff patient ate about 30% of her food. She is oriented cur rently only to self. We will continue current antibiotics. Her previous E. coli was resistant to ciprofloxacin. Possible discharge to higher level of nursing care. Have asked the nursing staff to get patient up in chair. 03/22 patient sleeping today. We will continue current antibiotics. Patient was assisted up to chair by nursing staff yesterday she was a max assist per staff. We will continue current antibiotics. 03/23 she continues to be somnolent she did sleep well last night per nursing staff. I will go ahead and get a chest x-ray for possible aspiration pneumonia. change antibiotics to Zosyn. We will get an ammonia level, and start her on PPN and put her n.p.o. since patient needs to wake up more to be able to be fed. will replace K.
[2020-03-23] MEDS: Piperacillin/Tazobactam 3.375 GM in Sodium Chloride 0.9% 100 ML IVPB SCH ×2 (15:25→20:17)
[2020-03-23 16:01] LABS: Troponin I 0.024 ng/mL (< 0.028)
[2020-03-23] MEDS: D5W-AA 4.25% with LYTES 1,000 ML IV SCH (16:09)
[2020-03-23 19:53] LABS: Troponin I 0.015 ng/mL (< 0.028)
[2020-03-24] MEDS: Piperacillin/Tazobactam 3.375 GM in Sodium Chloride 0.9% 100 ML IVPB SCH ×4 (01:33→20:30)
[2020-03-24] MEDS: Carbidopa/Levodopa 25-100 mg Tablet PO SCH ×7 (01:34→20:32)
[2020-03-24 06:44] LABS: #Lymphocytes 0.9 thou/uL (1.20-3.40); #Monocytes 0.4 thou/uL (0.11-0.59); #Neutrophils 11.7 thou/uL (1.40-6.50); %Monocytes 3.4 % (0.0-10.0); %Neutrophils 89.5 % (42.0-75.0); Hemoglobin 11.3 g/dL (12.0-16.0); Mean Corpuscular HGB CONC 32.8 g/dL (32.0-36.0); Mean Corpuscular Hemoglobin 30.6 pg (27.0-31.0); Mean Corpuscular Volume 93.5 fL (78.0-98.0); Mean Platelet Volume 9.8 fL (7.4-10.4); Platelet Count 160 thou/uL (130-400); RBC Distribution Width 12.1 % (11.5-14.5); White Blood Cell (WBC) Count 13.1 thou/uL (4.8-10.8)
[2020-03-24] MEDS: D5W-AA 4.25% with LYTES 1,000 ML IV SCH ×2 (07:03→22:31)
[2020-03-24 07:09] LABS: Anion Gap 14 mmol/L (10-20); BUN (Urea Nitrogen) 15 mg/dL (9.8-20.1); Calc. Creatinine Clearance 56 mL/min (70-130); Calcium 8.4 mg/dL (7.8-10.44); Carbon Dioxide 25 mmol/L (23-31); Chloride 103 mmol/L (98-107); Glucose 129 mg/dL (83-110); Magnesium 1.7 mg/dL (1.6-2.6); Sodium 139 mmol/L (136-145)
[2020-03-24 07:33] LABS: Potassium 2.8 mmol/L (3.5-5.1)
[2020-03-24] MEDS ORDERED: Potassium Chloride 10 MEQ in Premix Bag 1 BAG IVPB SCH (08:00)
[2020-03-24] MEDS ORDERED: Potassium Chloride 20 MEQ in Premix Bag 1 BAG IVPB SCH (08:15)
[2020-03-24] MEDS: Famotidine/PF 20 mg/2ml Vial SLOW IVP SCH ×2 (08:40→20:33)
[2020-03-24] MEDS: Enoxaparin Sodium 40 MG/0.4 ML SYRINGE SC SCH (08:40)
[2020-03-24] MEDS: Aspirin 81 mg Enteric Coated Tablet PO SCH (08:54)
[2020-03-24] MEDS: Escitalopram Oxalate 10 mg Tablet PO SCH (08:54)
[2020-03-24] MEDS: Amantadine HCl 100 mg Capsule PO SCH ×2 (08:54→20:33)
[2020-03-24] MEDS: Cyanocobalamin (Vitamin B-12) 1,000 MCG TAB PO SCH (08:54)
[2020-03-24] MEDS ORDERED: Piperacillin/Tazobactam 3.375 GM VIAL ONE (13:00)
--- NOTE | 2020-03-24 13:36 | PDOC.HOSPP ---
- Subjective Encounter Date: 03/24/20 Encounter Time: 10:30 Subjective: pt up in bed more awake. - Objective Vital Signs & Weight: Vital Signs (12 hours) Temp Pulse Resp BP BP Pulse Ox 03/24/20 09:38 135/68 03/24/20 09:08 95 03/24/20 07:28 98.2 F 59 L 19 170/64 H 95 Weight Admit Weight 103 lb Weight 103 lb 4.8 oz I&O: 03/23/20 03/24/20 03/25/20 06:59 06:59 06:59 Intake Total 1350 2330 Output Total 450 Balance 1350 1880 Result Diagrams: 03/24/20 06:30 03/24/20 06:30 Hospitalist ROS - Review of Systems Other: Unable to obtain - Medication Medications: Active Medications Generic Name Dose Route Start Last Admin Trade Name Freq PRN Reason Stop Dose Admin Acetaminophen 650 mg 03/19/20 00:30 03/20/20 17:25 Acetaminophen 325 Mg Tab PO 650 mg Q4H PRN Administration Headache/Fever/Mild Pain (1-3) Amantadine HCl 100 mg 03/19/20 09:00 03/24/20 08:54 Amantadine Hcl 100 Mg Capsule PO Not Given BID DHARMESH Aspirin 81 mg 03/19/20 09:00 03/24/20 08:54 Aspirin 81 Mg Enteric Coated Tablet PO Not Given DAILY DHARMESH Carbidopa/Levodopa 2 tab 03/19/20 09:00 03/24/20 13:06 Carbidopa/Levodopa 25-100 Mg Tablet PO 2 tab Q4HR DHARMESH Administration Cyanocobalamin 1,000 mcg 03/19/20 09:00 03/24/20 08:54 Cyanocobalamin (Vitamin B-12) 1,000 Mcg Tab PO Not Given DAILY DHARMESH Docusate Sodium 100 mg 03/20/20 09:00 03/23/20 09:04 Docusate 100 Mg Cap PO Not Given MWF DHARMESH Enoxaparin Sodium 40 mg 03/19/20 09:00 03/24/20 08:40 Enoxaparin Sodium 40 Mg/0.4 Ml Syringe SC 40 mg 0900 DHARMESH Administration Escitalopram Oxalate 10 mg 03/19/20 09:00 03/24/20 08:54 Escitalopram Oxalate 10 Mg Tablet PO Not Given DAILY DHARMESH Famotidine 20 mg 03/20/20 21:00 03/24/20 08:40 Famotidine/Pf 20 Mg/2ml Vial SLOW IVP 20 mg BID DHARMESH Administration Piperacillin Sod/Tazobactam 100 mls @ 200 mls/hr 03/23/20 14:00 03/24/20 13:05 Sod 3.375 gm/ Sodium Chloride IVPB 100 mls 0200,0800,1400,2000 DHARMESH Administration Amino Acids/Electrolytes/Dextrose 1,000 mls @ 65 mls/hr 03/23/20 15:45 03/24/20 07:03 Clinimix E 4.25/5 IV 1,000 mls INF DHARMESH Administration Sodium Chloride 10 ml 03/20/20 21:00 03/24/20 08:40 Flush - Normal Saline 10 Ml Syringe IVF 10 ml Q12HR DHARMESH Administration - Exam Respiratory: negative: CTAB, no wheezes, no rales, no ronchi, normal chest expansion, no tachypnea, normal percussion, rales, rhonchi, tachypneic, wheezes Gastrointestinal: negative: soft, non-tender, non-distended, normal bowel sounds, no palpable masses, no hepatomegaly, no splenomegaly, no bruit, no guarding, no rigidity, tender to palpation, distended, diminished bowl sounds, voluntary guarding Extremities: negative: no cyanosis, no clubbing, no edema, 1+ LE edema, 2+ LE edema, clubbing Hosp A/P (1) Acute metabolic encephalopathy Code(s): G93.41 - METABOLIC ENCEPHALOPATHY Status: Acute (2) UTI (urinary tract infection) Status: Acute (3) Dementia Code(s): F03.90 - UNSPECIFIED DEMENTIA WITHOUT BEHAVIORAL DISTURBANCE Status: Acute (4) Vitamin B1 deficiency Code(s): E51.9 - THIAMINE DEFICIENCY, UNSPECIFIED Status: Acute - Plan Patient up in bed oriented x2. Daughter at bedside. We will continue current antibiotics. Urine culture indicates E. coli. Will get speech to to evaluate patient. 03/20 will continue current tx. Speech saw the pt who recommended initially npo given her high risk for aspiration but then when pt's daughter came by she was more awake and we reevaluated her and she was able to tolerate pureed diet with honey thick liquids. spoke with case management that pt will need a high level of care. Plan discussed with pt's daughter. 03/21 per nursing staff patient ate about 30% of her food. She is oriented currently only to self. We will continue current antibiotics. Her previous E. coli was resistant to ciprofloxacin. Possible discharge to higher level of nursing care. Have asked the nursing staff to get patient up in chair. 03/22 patient sleeping today. We will continue current antibiotics. Patient was assisted up to chair by nursing staff yesterday she was a max assist per staff. We will continue current antibiotics. 03/23 she continues to be somnolent she did sleep well last night per nursing staff. I will go ahead and get a chest x-ray for possible aspiration pneumonia. change antibiotics to Zosyn. We will get an ammonia level, and start her on PPN and put her n.p.o. since patient needs to wake up more to be able to be fed. will replace K. 03/24 patient more awake was able to tolerate applesauce at bedside. Physical therapy worked with the patient in bed have asked the nurse to get the patient up in the chair. Patient's daughter updated. We will continue her PPN for now. We will replace her potassium. We will start patient on diet. Patient on DVT prophylaxis.
[2020-03-25] MEDS: Carbidopa/Levodopa 25-100 mg Tablet PO SCH ×6 (00:44→20:31)
[2020-03-25] MEDS: Piperacillin/Tazobactam 3.375 GM in Sodium Chloride 0.9% 100 ML IVPB SCH ×4 (02:45→20:48)
[2020-03-25] MEDS: Famotidine/PF 20 mg/2ml Vial SLOW IVP SCH ×2 (08:29→20:48)
[2020-03-25] MEDS: Enoxaparin Sodium 40 MG/0.4 ML SYRINGE SC SCH (08:30)
[2020-03-25] MEDS: Aspirin 81 mg Enteric Coated Tablet PO SCH (08:49)
[2020-03-25] MEDS: Amantadine HCl 100 mg Capsule PO SCH ×2 (08:49→20:31)
[2020-03-25] MEDS: Escitalopram Oxalate 10 mg Tablet PO SCH (08:49)
[2020-03-25] MEDS: Docusate 100 MG CAP PO SCH (08:49)
[2020-03-25] MEDS: Cyanocobalamin (Vitamin B-12) 1,000 MCG TAB PO SCH (08:49)
[2020-03-25 10:47] LABS: Chloride 105 mmol/L (98-107); Potassium 3.2 mmol/L (3.5-5.1); Sodium 137 mmol/L (136-145)
[2020-03-25 10:48] LABS: Calcium 8.2 mg/dL (7.8-10.44); Glucose 106 mg/dL (83-110)
[2020-03-25 10:50] LABS: Carbon Dioxide 17 mmol/L (23-31)
[2020-03-25 10:52] LABS: BUN (Urea Nitrogen) 17 mg/dL (9.8-20.1); Calc. Creatinine Clearance 54 mL/min (70-130)
[2020-03-25 10:54] LABS: Magnesium 1.9 mg/dL (1.6-2.6)
[2020-03-25 11:19] LABS: Anion Gap 18 mmol/L (10-20)
--- NOTE | 2020-03-25 15:23 | PDOC.HOSPP ---
- Subjective Encounter Date: 03/25/20 Encounter Time: 11:15 Subjective: Patient has waxing and waning symptoms. She was significantly drowsy today as compared to yesterday. Tried to get up in the chair it was very difficult. - Objective Vital Signs & Weight: Vital Signs (12 hours) Temp Pulse Resp BP BP Pulse Ox 03/25/20 08:00 98.3 F 64 16 135/72 94 L 03/25/20 03:23 97.3 F L 160 H 15 153/63 H 94 L Weight Admit Weight 103 lb Weight 103 lb 4.8 oz I&O: 03/24/20 03/25/20 03/26/20 06:59 06:59 06:59 Intake Total 2330 1110 Output Total 450 Balance 1880 1110 Result Diagrams: 03/24/20 06:30 03/25/20 09:37 Hospitalist ROS - Review of Systems Other: Denies any complaint - Medication Medications: Active Medications Generic Name Dose Route Start Last Admin Trade Name Freq PRN Reason Stop Dose Admin Acetaminophen 650 mg 03/19/20 00:30 03/20/20 17:25 Acetaminophen 325 Mg Tab PO 650 mg Q4H PRN Administration Headache/Fever/Mild Pain (1-3) Amantadine HCl 100 mg 03/19/20 09:00 03/25/20 08:49 Amantadine Hcl 100 Mg Capsule PO Not Given BID DHARMESH Aspirin 81 mg 03/19/20 09:00 03/25/20 08:49 Aspirin 81 Mg Enteric Coated Tablet PO Not Given DAILY DHARMESH Carbidopa/Levodopa 2 tab 03/19/20 09:00 03/25/20 11:59 Carbidopa/Levodopa 25-100 Mg Tablet PO 2 tab Q4HR DHARMESH Administration Cyanocobalamin 1,000 mcg 03/19/20 09:00 03/25/20 08:49 Cyanocobalamin (Vitamin B-12) 1,000 Mcg Tab PO Not Given DAILY DHARMESH Docusate Sodium 100 mg 03/20/20 09:00 03/25/20 08:49 Docusate 100 Mg Cap PO Not Given MWF DHARMESH Enoxaparin Sodium 40 mg 03/19/20 09:00 03/25/20 08:30 Enoxaparin Sodium 40 Mg/0.4 Ml Syringe SC 40 mg 09 DHARMESH Administration Escitalopram Oxalate 10 mg 03/19/20 09:00 03/25/20 08:49 Escitalopram Oxalate 10 Mg Tablet PO Not Given DAILY DHARMESH Famotidine 20 mg 03/20/20 21:00 03/25/20 08:29 Famotidine/Pf 20 Mg/2ml Vial SLOW IVP 20 mg BID DHARMESH Administration Piperacillin Sod/Tazobactam 100 mls @ 200 mls/hr 03/23/20 14:00 03/25/20 14:06 Sod 3.375 gm/ Sodium Chloride IVPB 100 mls 0200,0800,1400,2000 DHARMESH Administration Amino Acids/Electrolytes/Dextrose 1,000 mls @ 65 mls/hr 03/23/20 15:45 03/24/20 22:31 Clinimix E 4.25/5 IV 1,000 mls INF DHARMESH Administration Potassium Chloride 20 meq 03/24/20 17:00 03/25/20 08:49 Potassium Chloride 20 Meq Packet PO Not Given BID-WM DHARMESH Sodium Chloride 10 ml 03/20/20 21:00 03/25/20 08:30 Flush - Normal Saline 10 Ml Syringe IVF 10 ml Q12HR DHARMESH Administration - Exam Neck: negative: supple, symmetric, no JVD, no thyromegaly, no lymphadenopathy, no carotid bruit, JVD Heart: negative: RRR, no murmur, no gallops, no rubs, normal peripheral pulses, irregular, diminshed peripheral pulses, murmur present, II/IV, III/IV Respiratory: negative: CTAB, no wheezes, no rales, no ronchi, normal chest expansion, no tachypnea, normal percussion, rales, rhonchi, tachypneic, wheezes Gastrointestinal: negative: soft, non-tender, non-distended, normal bowel sounds, no palpable masses, no hepatomegaly, no splenomegaly, no bruit, no guarding, no rigidity, tender to palpation, distended, diminished bowl sounds, voluntary guarding Hosp A/P (1) Acute metabolic encephalopathy Code(s): G93.41 - METABOLIC ENCEPHALOPATHY Status: Acute (2) UTI (urinary tract infection) Status: Acute (3) Dementia Code(s): F03.90 - UNSPECIFIED DEMENTIA WITHOUT BEHAVIORAL DISTURBANCE Status: Acute (4) Vitamin B1 deficiency Code(s): E51.9 - THIAMINE DEFICIENCY, UNSPECIFIED Status: Acute - Plan Patient up in bed oriented x2. Daughter at bedside. We will continue current antibiotics. Urine culture indicates E. coli. Will get speech to to evaluate patient. 03/20 will continue current tx. Speech saw the pt who recommended initially npo given her high risk for aspiration but then when pt's daughter came by she was more awake and we reevaluated her and she was able to tolerate pureed diet with honey thick liquids. spoke with case management that pt will need a high level of care. Plan discussed with pt's daughter. 03/21 per nursing staff patient ate about 30% of her food. She is oriented currently only to self. We will continue current antibiotics. Her previous E. coli was resistant to ciprofloxacin. Possible discharge to higher level of nursing care. Have asked the nursing staff to get patient up in chair. 03/22 patient sleeping today. We will continue current antibiotics. Patient was assisted up to chair by nursing staff yesterday she was a max assist per staff. We will continue current antibiotics. 03/23 she continues to be somnolent she did sleep well last night per nursing staff. I will go ahead and get a chest x-ray for possible aspiration pneumonia. change antibiotics to Zosyn. We will get an ammonia level, and start her on PPN and put her n.p.o. since patient needs to wake up more to be able to be fed. will replace K. 03/24 patient more awake was able to tolerate applesauce at bedside. Physical therapy worked with the patient in bed have asked the nurse to get the patient up in the chair. Patient's daughter updated. We will continue her PPN for now. We will replace her potassium. We will start patient on diet. Patient on DVT prophylaxis. 03/25 patient again more lethargic compared to yesterday. We will see if she is able to tolerate orals. We will continue PPN for now. I discussed with the patient's daughter was at bedside that she will require senior care facility. Her overall prognosis is very poor. Will replace potassium.
[2020-03-25] MEDS ORDERED: Sodium Chloride 0.9% 1,000 ML IV SCH (15:30)
--- NOTE | 2020-03-25 16:52 | PQF ---
CLINICAL DOCUMENTATION CLARIFICATION FORM: Dear Dr. Mayorga Date: 03/25/20 Please exercise your independent, professional judgment in responding to the clarification form. Clinical indicators are provided on the bottom of this form for your review. Please check appropriate box(es): [ x ] Protein Calorie Malnutrition: [ ] Mild [ ] Moderate [ x ] Severe [ ] Other Malnutrition (please specify) [ ] Underweight without malnutrition [ ] Cachexia [ ] Other diagnosis [ ] Unable to determine In addition, please specify: Present on Admission (POA): [ x] Yes [ ] No [ ] Unable to determine For continuity of documentation, please document condition throughout progress notes and discharge summary. Thank You. To be completed by CDI/Coding staff for physician review: CLINICAL INDICATORS - SIGNS / SYMPTOMS / LABS / RESULTS AND LOCATION IN MR DIETARY ASSESSMENT 03/25: "SEVERE WASTING OBSERVED TO THE TRAPEZIUS MUSCLE WITH MODERATE TO SEVERE WASTING TO THE ORBITAL FAT PAD, FAMILY REPORT OF POOR INTAKE" BMI 18.9 ALBUMIN 03/23: 3.2 RISK FACTORS / RESULTS AND LOCATION IN MR PARKINSON'S DISEASE (H&P- [facility]) DEMENTIA (PN 03/25 -GENNARO) HIGH RISK FOR ASPIRATION (PN 03/25 - GENNARO) TREATMENT / RESULTS AND LOCATION IN MR PO NUTRITIONAL SUPPLEMENTS (DIETARY ASSESSMENT 03/25) PPN (03/24-PRESENT) DIETARY CONSULT SPEECH THERAPY CONSULT 03/20 Moderate Malnutrition (in acute illness) Energy Intake: <75% of estimated energy requirement for > 7 days Weight Loss: 1-2%/1 week; 5%/ 1 month; 7.5%/3 months Other: mild body fat loss; mild muscle mass loss; mild fluid accumulation; Severe Malnutrition (in acute illness) Energy Intake: = 50% of estimated energy requirement for = 5 days Weight Loss: >2%/1 week; >5%/1 month; >7.5%/3 months Other: moderate body fat loss; moderate muscle mass loss; moderate- severe fluid accumulation; measurably reduced superannuation clerk strength Moderate Malnutrition (in chronic illness) Energy Intake: <75% of estimated energy requirement for =1 month Weight Loss: 5%/1 month; 7.5%/3 months; 10%/6 months; 20%/1 year Other: mild body fat loss; mild muscle mass loss; mild fluid accumulation Severe Malnutrition (in chronic illness) Energy Intake: =75% of estimated energy requirement for =1 month Weight Loss: >5%/1 month; >7.5%/3 months; >10%/6 months; >20%/1 year Other: severe body fat loss; severe muscle mass loss; severe fluid accumulation; measurably reduced superannuation clerk strength CDS Signature: Elaine Maldonado RN Phone #: [phone] Date: 03/25/20 This is a permanent part of the Medical Record [facility]
[2020-03-26] MEDS: Carbidopa/Levodopa 25-100 mg Tablet PO SCH ×4 (03:12→13:28)
[2020-03-26] MEDS: Piperacillin/Tazobactam 3.375 GM in Sodium Chloride 0.9% 100 ML IVPB SCH ×4 (03:20→20:55)
[2020-03-26 05:33] LABS: #Lymphocytes 0.6 thou/uL (1.20-3.40); #Monocytes 0.5 thou/uL (0.11-0.59); #Neutrophils 6.8 thou/uL (1.40-6.50); %Basophils 0.1 % (0.0-1.0); %Eosinophils 0.1 % (0.0-10.0); %Lymphocytes 7.3 % (21.0-51.0); %Monocytes 5.8 % (0.0-10.0); %Neutrophils 86.7 % (42.0-75.0); Mean Corpuscular HGB CONC 33.1 g/dL (32.0-36.0); Mean Corpuscular Hemoglobin 30.9 pg (27.0-31.0); Mean Corpuscular Volume 93.3 fL (78.0-98.0); Mean Platelet Volume 10.4 fL (7.4-10.4); Platelet Count 165 thou/uL (130-400); RBC Distribution Width 12.2 % (11.5-14.5); Red Blood Cell (RBC) Count 3.57 mill/uL (4.20-5.40); White Blood Cell (WBC) Count 7.8 thou/uL (4.8-10.8)
[2020-03-26 05:50] LABS: ALT (SGPT) Less than 7 U/L (8-55); AST (SGOT) 8 U/L (5-34); Albumin 2.8 g/dL (3.4-4.8); Alkaline Phosphatase 76 U/L (40-110); Anion Gap 11 mmol/L (10-20); BUN (Urea Nitrogen) 14 mg/dL (9.8-20.1); Bilirubin, Total 0.8 mg/dL (0.2-1.2); Calc. Creatinine Clearance 61 mL/min (70-130); Calcium 7.9 mg/dL (7.8-10.44); Carbon Dioxide 26 mmol/L (23-31); Chloride 102 mmol/L (98-107); Globulin 2.5 g/dL (2.4-3.5); Glucose 102 mg/dL (83-110); Protein, Total 5.3 g/dL (6.0-8.3); Sodium 136 mmol/L (136-145)
[2020-03-26 05:59] LABS: Potassium 2.6 mmol/L (3.5-5.1)
[2020-03-26] MEDS: Potassium Chloride 20 MEQ in Premix Bag 1 BAG IVPB SCH ×2 (06:43→08:17)
[2020-03-26] MEDS: Famotidine/PF 20 mg/2ml Vial SLOW IVP SCH ×2 (08:13→21:04)
[2020-03-26] MEDS: Aspirin 81 mg Enteric Coated Tablet PO SCH (08:14)
[2020-03-26] MEDS: Enoxaparin Sodium 40 MG/0.4 ML SYRINGE SC SCH (08:14)
[2020-03-26] MEDS: Amantadine HCl 100 mg Capsule PO SCH (08:14)
[2020-03-26] MEDS: Escitalopram Oxalate 10 mg Tablet PO SCH (08:15)
[2020-03-26] MEDS: Cyanocobalamin (Vitamin B-12) 1,000 MCG TAB PO SCH (08:15)
[2020-03-26 13:15] LABS: Anion Gap 10 mmol/L (10-20); BUN (Urea Nitrogen) 13 mg/dL (9.8-20.1); Calc. Creatinine Clearance 58 mL/min (70-130); Calcium 8.4 mg/dL (7.8-10.44); Carbon Dioxide 28 mmol/L (23-31); Chloride 100 mmol/L (98-107); Glucose 119 mg/dL (83-110); Potassium 3.4 mmol/L (3.5-5.1); Sodium 135 mmol/L (136-145)
--- NOTE | 2020-03-26 15:14 | PDOC.HOSPP ---
- Subjective Encounter Date: 03/26/20 Encounter Time: 10:30 Subjective: Patient very drowsy arousable only on sternal rubbing. She does follow commands. - Objective Vital Signs & Weight: Vital Signs (12 hours) Temp Pulse Resp BP Pulse Ox 03/26/20 07:49 98.2 F 68 16 180/72 H 90 L Weight Admit Weight 103 lb Weight 103 lb 4.8 oz I&O: 03/25/20 03/26/20 03/27/20 06:59 06:59 06:59 Intake Total 1110 Balance 1110 Result Diagrams: 03/26/20 05:14 03/26/20 12:43 Hospitalist ROS - Review of Systems Other: Unable to obtain - Medication Medications: Active Medications Generic Name Dose Route Start Last Admin Trade Name Freq PRN Reason Stop Dose Admin Acetaminophen 650 mg 03/19/20 00:30 03/20/20 17:25 Acetaminophen 325 Mg Tab PO 650 mg Q4H PRN Administration Headache/Fever/Mild Pain (1-3) Amantadine HCl 100 mg 03/19/20 09:00 03/26/20 08:14 Amantadine Hcl 100 Mg Capsule PO Not Given BID DHARMESH Aspirin 81 mg 03/19/20 09:00 03/26/20 08:14 Aspirin 81 Mg Enteric Coated Tablet PO Not Given DAILY DHARMESH Carbidopa/Levodopa 2 tab 03/19/20 09:00 03/26/20 13:28 Carbidopa/Levodopa 25-100 Mg Tablet PO Not Given Q4HR DHARMESH Cyanocobalamin 1,000 mcg 03/19/20 09:00 03/26/20 08:15 Cyanocobalamin (Vitamin B-12) 1,000 Mcg Tab PO Not Given DAILY DHARMESH Docusate Sodium 100 mg 03/20/20 09:00 03/25/20 08:49 Docusate 100 Mg Cap PO Not Given MWF DHARMESH Enoxaparin Sodium 40 mg 03/19/20 09:00 03/26/20 08:14 Enoxaparin Sodium 40 Mg/0.4 Ml Syringe SC 40 mg 0900 DHARMESH Administration Escitalopram Oxalate 10 mg 03/19/20 09:00 03/26/20 08:15 Escitalopram Oxalate 10 Mg Tablet PO Not Given DAILY DHARMESH Famotidine 20 mg 03/20/20 21:00 03/26/20 08:13 Famotidine/Pf 20 Mg/2ml Vial SLOW IVP 20 mg BID DHRAMESH Administration Piperacillin Sod/Tazobactam 100 mls @ 200 mls/hr 03/23/20 14:00 03/26/20 14:37 Sod 3.375 gm/ Sodium Chloride IVPB 100 mls 0200,0800,1400,2000 DHARMESH Administration Amino Acids/Electrolytes/Dextrose 1,000 mls @ 65 mls/hr 03/23/20 15:45 03/24/20 22:31 Clinimix E 4.25/5 IV 1,000 mls INF DHARMESH Administration Potassium Chloride 20 meq 03/24/20 17:00 03/26/20 08:14 Potassium Chloride 20 Meq Packet PO Not Given BID- DHARMESH Sodium Chloride 10 ml 03/20/20 21:00 03/26/20 08:15 Flush - Normal Saline 10 Ml Syringe IVF 10 ml Q12HR DHARMESH Administration - Exam General - other findings: Appears malnourished ENT: dry oral mucosa Neck: negative: supple, symmetric, no JVD, no thyromegaly, no lymphadenopathy, no carotid bruit, JVD Heart: negative: RRR, no murmur, no gallops, no rubs, normal peripheral pulses, irregular, diminshed peripheral pulses, murmur present, II/IV, III/IV Respiratory: negative: CTAB, no wheezes, no rales, no ronchi, normal chest expansion, no tachypnea, normal percussion, rales, rhonchi, tachypneic, wheezes Gastrointestinal: negative: soft, non-tender, non-distended, normal bowel sounds, no palpable masses, no hepatomegaly, no splenomegaly, no bruit, no guarding, no rigidity, tender to palpation, distended, diminished bowl sounds, voluntary guarding Hosp A/P (1) Acute metabolic encephalopathy Code(s): G93.41 - METABOLIC ENCEPHALOPATHY Status: Acute (2) UTI (urinary tract infection) Status: Acute (3) Dementia Code(s): F03.90 - UNSPECIFIED DEMENTIA WITHOUT BEHAVIORAL DISTURBANCE Status: Acute (4) Vitamin B1 deficiency Code(s): E51.9 - THIAMINE DEFICIENCY, UNSPECIFIED Status: Acute - Plan Patient up in bed oriented x2. Daughter at bedside. We will continue current antibiotics. Urine culture indicates E. coli. Will get speech to to evaluate patient. 03/20 will continue current tx. Speech saw the pt who recommended initially npo given her high risk for aspiration but then when pt's daughter came by she was more awake and we reevaluated her and she was able to tolerate pureed diet with honey thick liquids. spoke with case management that pt will need a high level of care. Plan discussed with pt's daughter. 03/21 per nursing staff patient ate about 30% of her food. She is oriented currently only to self. We will continue current antibiotics. Her previous E. coli was resistant to ciprofloxacin. Possible discharge to higher level of nursing care. Have asked the nursing staff to get patient up in chair. 03/22 patient sleeping today. We will continue current antibiotics. Patient was assisted up to chair by nursing staff yesterday she was a max assist per staff. We will continue current antibiotics. 03/23 she continues to be somnolent she did sleep well last night per nursing staff. I will go ahead and get a chest x-ray for possible aspiration pneumonia. change antibiotics to Zosyn. We will get an ammonia level, and start her on PPN and put her n.p.o. since patient needs to wake up more to be able to be fed. will replace K. 03/24 patient more awake was able to tolerate applesauce at bedside. Physical therapy worked with the patient in bed have asked the nurse to get the patient up in the chair. Patient's daughter updated. We will continue her PPN for now. We will replace her potassium. We will start patient on diet. Patient on DVT prophylaxis. 03/25 patient again more lethargic compared to yesterday. We will see if she is able to tolerate orals. We will continue PPN for now. I discussed with the patient's daughter was at bedside that she will require nursing home facility. Her overall prognosis is very poor. Will replace potassium. 03/26 had a lengthy discussion with the patient's daughter about patient's waxing waning and worsening mental status. Patient is not really eating very much. She is currently on a PPN and IV fluids. Yesterday we try to get the patient up she was unable to do so. Also when trying to give her food she was unable to swallow. Options for possible hospice was discussed with the daughter. She states she is going to talk with her family. I will get an MRI brain to rule out a stroke. Patient is on Zosyn which I will continue. I did tell the daughter that medically I have nothing much to offer to her. We will hold on her citalopram, levodopa carbidopa and amantadine to see if this would help with her mentation.
[2020-03-26] MEDS ORDERED: NS 0.9% w/ 20 MEQ KCL 1,000 ML/1,000 ML BAG IV SCH (15:30)
--- NOTE | 2020-03-26 15:44 | MRI ---
MRI BRAIN NONCONTRAST: DATE: 03/26/2020 HISTORY: 89-year-old female with altered mental status. Rule out acute stroke. FINDINGS: There is no obstructive hydrocephalus. There is no midline shift or any other evidence of mass effect . There is no extra-axial fluid collection. There are mild-moderate chronic ischemic white matter changes due to microvascular atherosclerosis. There is diffuse brain parenchymal volume loss. There i s no evidence of recent hemorrhage or restricted diffusion. IMPRESSION: 1) Involutional changes and mild-moderate chronic ischemic white matter changes. 2) otherwise negative
[2020-03-27] MEDS: D5W-AA 4.25% with LYTES 1,000 ML IV SCH ×2 (01:16→15:41)
[2020-03-27] MEDS: Piperacillin/Tazobactam 3.375 GM in Sodium Chloride 0.9% 100 ML IVPB SCH ×4 (02:12→20:10)
[2020-03-27] MEDS: Famotidine/PF 20 mg/2ml Vial SLOW IVP SCH ×2 (08:29→20:10)
[2020-03-27] MEDS: Enoxaparin Sodium 40 MG/0.4 ML SYRINGE SC SCH (09:07)
[2020-03-27 11:19] LABS: #Lymphocytes 0.8 thou/uL (1.20-3.40); #Monocytes 0.5 thou/uL (0.11-0.59); #Neutrophils 6.9 thou/uL (1.40-6.50); %Basophils 0.2 % (0.0-1.0); %Eosinophils 0.2 % (0.0-10.0); %Lymphocytes 9.2 % (21.0-51.0); %Monocytes 5.5 % (0.0-10.0); Hemoglobin 11.6 g/dL (12.0-16.0); Mean Corpuscular Hemoglobin 30.5 pg (27.0-31.0); Mean Corpuscular Volume 95.2 fL (78.0-98.0); Mean Platelet Volume 10.2 fL (7.4-10.4); Platelet Count 172 thou/uL (130-400); RBC Distribution Width 12.2 % (11.5-14.5); White Blood Cell (WBC) Count 8.1 thou/uL (4.8-10.8)
[2020-03-27 11:42] LABS: ALT (SGPT) 10 U/L (8-55); AST (SGOT) 16 U/L (5-34); Albumin 2.8 g/dL (3.4-4.8); Alkaline Phosphatase 81 U/L (40-110); Anion Gap 12 mmol/L (10-20); BUN (Urea Nitrogen) 15 mg/dL (9.8-20.1); Bilirubin, Total 0.8 mg/dL (0.2-1.2); Calc. Creatinine Clearance 61 mL/min (70-130); Carbon Dioxide 25 mmol/L (23-31); Chloride 103 mmol/L (98-107); Globulin 2.5 g/dL (2.4-3.5); Glucose 115 mg/dL (83-110); Potassium 3.1 mmol/L (3.5-5.1); Protein, Total 5.3 g/dL (6.0-8.3); Sodium 137 mmol/L (136-145)
[2020-03-27] MEDS: Aspirin 81 mg Enteric Coated Tablet PO SCH (11:54)
[2020-03-27] MEDS: Docusate 100 MG CAP PO SCH (11:54)
[2020-03-27] MEDS: Cyanocobalamin (Vitamin B-12) 1,000 MCG TAB PO SCH (11:54)
[2020-03-27] MEDS ORDERED: NS 0.9% w/ 20 MEQ KCL 1,000 ML IV SCH (12:30)
[2020-03-27] MEDS: Carbidopa/Levodopa 25-100 mg Tablet PO SCH (20:10)
[2020-03-27 22:31] LABS: SARS-CoV-2 MS2 Positive; SARS-CoV-2 N Gene Negative; SARS-CoV-2 S Gene Negative; SARS-CoV-2 by NAA Not Detected (NotDetected); SARS-CoV-2 orf1ab Negative
[2020-03-28] MEDS: Piperacillin/Tazobactam 3.375 GM in Sodium Chloride 0.9% 100 ML IVPB SCH ×4 (02:46→21:25)
[2020-03-28] MEDS ORDERED: hydrALAZINE 20 MG/ML VIAL SLOW IVP PRN (04:15)
[2020-03-28] MEDS ORDERED: hydrALAZINE 20 MG/ML VIAL SLOW IVP SCH (04:15)
[2020-03-28] MEDS: D5W-AA 4.25% with LYTES 1,000 ML IV SCH (06:33)
--- NOTE | 2020-03-28 08:47 | PDOC.HOSPP ---
- Subjective Encounter Date: 03/27/20 Encounter Time: 12:30 Subjective: pt up in bed more awake today. - Objective Vital Signs & Weight: Vital Signs (12 hours) Temp Pulse Resp BP BP Pulse Ox 03/28/20 07:39 97.7 F 64 15 148/66 H 95 03/28/20 05:25 61 151/66 H 03/28/20 04:00 97.5 F L 68 16 191/70 H 96 03/28/20 00:00 97.7 F 66 16 176/77 H 94 L Weight Admit Weight 103 lb Weight 103 lb 4.8 oz I&O: 03/27/20 03/28/20 03/29/20 06:59 06:59 06:59 Intake Total 3093 Output Total 2450 Balance 643 Result Diagrams: 03/27/20 11:04 03/27/20 11:04 Additional Labs: Accuchecks 03/28/20 04:10 POC Glucose 112 H Hospitalist ROS - Review of Systems Respiratory: denies: cough, dry, shortness of breath, hemoptysis, SOB with ex certion, pleuritic pain, sputum, wheezing, other Cardiovascular: denies: chest pain, palpitations, orthopnea, paroxysmal noc. dyspnea, edema, light headedness, other Gastrointestinal: denies: nausea, vomiting, abdominal pain, diarrhea, constipation, melena, hematochezia, other - Medication Medications: Active Medications Generic Name Dose Route Start Last Admin Trade Name Freq PRN Reason Stop Dose Admin Acetaminophen 650 mg 03/19/20 00:30 03/20/20 17:25 Acetaminophen 325 Mg Tab PO 650 mg Q4H PRN Administration Headache/Fever/Mild Pain (1-3) Amantadine HCl 100 mg 03/19/20 09:00 03/26/20 08:14 Amantadine Hcl 100 Mg Capsule PO Not Given BID DHARMESH Aspirin 81 mg 03/19/20 09:00 03/27/20 11:54 Aspirin 81 Mg Enteric Coated Tablet PO Not Given DAILY DHARMESH Carbidopa/Levodopa 2 tab 03/27/20 21:00 03/27/20 20:10 Carbidopa/Levodopa 25-100 Mg Tablet PO Not Given BID DHARMESH Cyanocobalamin 1,000 mcg 03/19/20 09:00 03/27/20 11:54 Cyanocobalamin (Vitamin B-12) 1,000 Mcg Tab PO Not Given DAILY [facility] Docusate Sodium 100 mg 03/20/20 09:00 03/27/20 11:54 Docusate 100 Mg Cap [facility] Not [facility] Enoxaparin Sodium 40 mg 03/19/20 09:00 03/27/20 09:07 Enoxaparin Sodium 40 Mg/0.4 Ml Syringe SC 40 mg 0900 DHARMESH Administration Escitalopram Oxalate 10 mg 03/19/20 09:00 03/26/20 08:15 Escitalopram Oxalate 10 Mg Tablet PO Not Given DAILY [facility] Famotidine 20 mg 03/20/20 21:00 03/27/20 20:10 Famotidine/Pf 20 Mg/2ml Vial SLOW IVP 20 mg BID DHARMESH Administration Piperacillin Sod/Tazobactam 100 mls @ 200 mls/hr 03/23/20 14:00 03/28/20 02:46 Sod 3.375 gm/ Sodium Chloride IVPB 100 mls 0200,0800,1400,2000 DHARMESH Administration Amino Acids/Electrolytes/Dextrose 1,000 mls @ 65 mls/hr 03/23/20 15:45 03/28/20 06:33 Clinimix E 4.25/5 IV 1,000 mls INF DHARMESH Administration Potassium Chloride 20 meq 03/24/20 17:00 03/27/20 17:38 Potassium Chloride 20 Meq Packet PO Not Given BID-[facility] Sodium Chloride 10 ml 03/20/20 21:00 03/27/20 20:11 Flush - Normal Saline 10 Ml Syringe IVF Not Given Q12HR DHARMESH - Exam General - other findings: cachetic Neck: negative: supple, symmetric, no JVD, no thyromegaly, no lymphadenopathy, no carotid bruit, JVD Heart: negative: RRR, no murmur, no gallops, no rubs, normal peripheral pulses, irregular, diminshed peripheral pulses, murmur present, II/IV, III/IV Respiratory: negative: CTAB, no wheezes, no rales, no ronchi, normal chest expansion, no tachypnea, normal percussion, rales, rhonchi, tachypneic, wheezes Gastrointestinal: negative: soft, non-tender, non-distended, normal bowel sounds, no palpable masses, no hepatomegaly, no splenomegaly, no bruit, no guarding, no rigidity, tender to palpation, distended, diminished bowl sounds, voluntary guarding Hosp A/P (1) Acute metabolic encephalopathy Code(s): G93.41 - METABOLIC ENCEPHALOPATHY Status: Acute (2) UTI (urinary tract infection) Status: Acute (3) Dementia Code(s): F03.90 - UNSPECIFIED DEMENTIA WITHOUT BEHAVIORAL DISTURBANCE Status: Acute (4) Vitamin B1 deficiency Code(s): E51.9 - THIAMINE DEFICIENCY, UNSPECIFIED Status: Acute (5) Aspiration pneumonia Code(s): J69.0 - PNEUMONITIS DUE TO INHALATION OF FOOD AND VOMIT Status: Acute - Plan Patient up in bed oriented x2. Daughter at bedside. We will continue current antibiotics. Urine culture indicates E. coli. Will get speech to to evaluate patient. 03/20 will continue current tx. Speech saw the pt who recommended initially npo given her high risk for aspiration but then when pt's daughter came by she was more awake and we reevaluated her and she was able to tolerate pureed diet with honey thick liquids. spoke with case management that pt will need a high level of care. Plan discussed with pt's daughter. 03/21 per nursing staff patient ate about 30% of her food. She is oriented currently only to self. We will continue current antibiotics. Her previous E. coli was resistant to ciprofloxacin. Possible discharge to higher level of nursing care. Have asked the nursing staff to get patient up in chair. 03/22 patient sleeping today. We will continue current antibiotics. Patient was assisted up to chair by nursing staff yesterday she was a max assist per staff. We will continue current antibiotics. 03/23 she continues to be somnolent she did sleep well last night per nursing staff. I will go ahead and get a chest x-ray for possible aspiration pneumonia. change antibiotics to Zosyn. We will get an ammonia level, and start her on PPN and put her n.p.o. since patient needs to wake up more to be able to be fed. will replace K. 03/24 patient more awake was able to tolerate applesauce at bedside. Physical therapy worked with the patient in bed have asked the nurse to get the patient up in the chair. Patient's daughter updated. We will continue her PPN for now. We will replace her potassium. We will start patient on diet. Patient on DVT prophylaxis. 03/25 patient again more lethargic compared to yesterday. We will see if she is able to tolerate orals. We will continue PPN for now. I discussed with the patient's daughter was at bedside that she will require shelter facility. Her overall prognosis is very poor. Will replace potassium. 03/26 had a lengthy discussion with the patient's daughter about patient's waxing waning and worsening mental status. Patient is not really eating very much. She is currently on a PPN and IV fluids. Yesterday we try to get the patient up she was unable to do so. Also when trying to give her food she was unable to swallow. Options for possible hospice was discussed with the daughter. She states she is going to talk with her family. I will get an MRI brain to rule out a stroke. Patient is on Zosyn which I will continue. I did tell the daughter that medically I have nothing much to offer to her. We will hold on her citalopram, levodopa carbidopa and amantadine to see if this would help with her mentation. 03/27 Had a long conversation with pt's children about pt's overall medical decline. I did notice that she was getting sinemet 4-5 times a day which acco rding to the custodial is not new for her. Nursing verified that the only new thing on her medication list was Amantadine which was started in January. I have decreased the dose of sinemet to bid and stopped all other medication for now. The plan i discussed with the family is as of the following, i will observer her with this medication change and see how she does if she improved most likely her medication dose needs to be adjusted given her body size. If she continues to wax and wane then hospice is the best option for her. Her mri brain was negative. Family is ok with oral ( thick fluids with pureed diet) with risk of aspiration. Family were ok with this plan. I will continue ppn and fluids.
[2020-03-28] MEDS: Cyanocobalamin (Vitamin B-12) 1,000 MCG TAB PO SCH (09:35)
[2020-03-28] MEDS: Aspirin 81 mg Enteric Coated Tablet PO SCH (09:35)
[2020-03-28] MEDS: Carbidopa/Levodopa 25-100 mg Tablet PO SCH ×2 (09:35→21:26)
[2020-03-28] MEDS: Famotidine/PF 20 mg/2ml Vial SLOW IVP SCH ×2 (09:36→21:26)
[2020-03-28] MEDS: Enoxaparin Sodium 40 MG/0.4 ML SYRINGE SC SCH (09:37)
[2020-03-28 12:03] LABS: Potassium 3.1 mmol/L (3.5-5.1)
[2020-03-28] MEDS ORDERED: Potassium Chloride 40 MEQ in Sodium Chloride 0.9% 250 ML 250 ML IVPB SCH (13:00)
--- NOTE | 2020-03-28 16:29 | PDOC.HOSPP ---
- Subjective Encounter Date: 03/28/20 Encounter Time: 10:00 Subjective: F/u: encephalopathy The patient is sitting up, says she feels fine. She wants cranberry juice. Per nurse she aspirated on apple sauce. Family is looking into hospice, awaiting a hospital bed at [facility]. SPoke with son Didier who is visiting from [place] - Objective Vital Signs & Weight: Vital Signs (12 hours) Temp Pulse Resp BP BP Pulse Ox 03/28/20 09:20 95 03/28/20 07:39 97.7 F 64 15 148/66 H 95 03/28/20 05:25 61 151/66 H Weight Admit Weight 103 lb Weight 103 lb 4.8 oz I&O: 03/27/20 03/28/20 03/29/20 06:59 06:59 06:59 Intake Total 3093 Output Total 2450 Balance 643 Result Diagrams: 03/27/20 11:04 03/28/20 11:28 Additional Labs: Accuchecks 03/28/20 04:10 POC Glucose 112 H Hospitalist ROS - Review of Systems Constitutional: denies: fever, chills - Medication Medications: Active Medications Generic Name Dose Route Start Last Admin Trade Name Freq PRN Reason Stop Dose Admin Acetaminophen 650 mg 03/19/20 00:30 03/20/20 17:25 Acetaminophen 325 Mg Tab PO 650 mg Q4H PRN Administration Headache/Fever/Mild Pain (1-3) Amantadine HCl 100 mg 03/19/20 09:00 03/26/20 08:14 Amantadine Hcl 100 Mg Capsule PO Not Given BID DHARMESH Aspirin 81 mg 03/19/20 09:00 03/28/20 09:35 Aspirin 81 Mg Enteric Coated Tablet PO Not Given DAILY DHARMESH Carbidopa/Levodopa 2 tab 03/27/20 21:00 03/28/20 09:35 Carbidopa/Levodopa 25-100 Mg Tablet PO 2 tab BID DHARMESH Administration Cyanocobalamin 1,000 mcg 03/19/20 09:00 03/28/20 09:35 Cyanocobalamin (Vitamin B-12) 1,000 Mcg Tab PO 1,000 mcg DAILY DHARMESH Administration Docusate Sodium 100 mg 03/20/20 09:00 03/27/20 11:54 Docusate 100 Mg Cap PO Not Given MWF DHARMESH Enoxaparin Sodium 40 mg 03/19/20 09:00 03/28/20 09:37 Enoxaparin Sodium 40 Mg/0.4 Ml Syringe SC 40 mg 0900 DHARMESH Administration Escitalopram Oxalate 10 mg 03/19/20 09:00 03/26/20 08:15 Escitalopram Oxalate 10 Mg Tablet PO Not Given DAILY DHARMESH Famotidine 20 mg 03/20/20 21:00 03/28/20 09:36 Famotidine/Pf 20 Mg/2ml Vial SLOW IVP 20 mg BID DHARMESH Administration Piperacillin Sod/Tazobactam 100 mls @ 200 mls/hr 03/23/20 14:00 03/28/20 13:24 Sod 3.375 gm/ Sodium Chloride IVPB 100 mls 0200,0800,1400,2000 DHARMESH Administration Amino Acids/Electrolytes/Dextrose 1,000 mls @ 65 mls/hr 03/23/20 15:45 03/28/20 06:33 Clinimix E 4.25/5 IV 1,000 mls INF DHARMESH Administration Potassium Chloride 40 meq/ 270 mls @ 67.5 mls/hr 03/28/20 13:00 03/28/20 15:20 Sodium Chloride IVPB 03/28/20 16:59 270 mls 1300 DHARMESH Administration Potassium Chloride 20 meq 03/24/20 17:00 03/28/20 09:35 Potassium Chloride 20 Meq Packet PO Not Given BID-WM DHARMESH Sodium Chloride 10 ml 03/20/20 21:00 03/28/20 09:36 Flush - Normal Saline 10 Ml Syringe IVF Not Given Q12HR DHARMESH - Exam General Appearance: NAD, awake alert Eye: PERRL, anicteric sclera ENT: normocephalic atraumatic, no oropharyngeal lesions ENT - other findings: very dry mouth Neck: no JVD Heart: RRR, no murmur, no gallops, no rubs Respiratory: CTAB, no wheezes, no rales, no ronchi Gastrointestinal: soft, non-tender, non-distended, normal bowel sounds Extremities: no cyanosis, no clubbing Hosp A/P - Plan Chest Xray: left lower lobe infiltrate MRI brain: chronic white matter ischemic change This is an 89 year old female with dementia who presented with altered mental status Acute metabolic encephalopathy secondary to UTI and advanced dementia - oriented times one currently - continue IV zosyn day 5 for E coli UTI. MRI brain showed no stroke - Severe Protein/Calorie Malnutrition - patient aspirates with food. Son agreeable to diet with risks of aspiration - hospice is going to be setup for home Hypokalemia - potassium 3.1, replace with IV potassium Parkinsons - cinemet reduced to bid, on amantadine as well Anemia - Hb 11.6, stable
[2020-03-28] MEDS: Amantadine HCl 100 mg Capsule PO SCH (21:26)
[2020-03-29] MEDS: Piperacillin/Tazobactam 3.375 GM in Sodium Chloride 0.9% 100 ML IVPB SCH ×4 (03:17→20:25)
[2020-03-29 06:15] LABS: Potassium 3.1 mmol/L (3.5-5.1)
[2020-03-29] MEDS: Amantadine HCl 100 mg Capsule PO SCH ×2 (08:40→20:26)
[2020-03-29] MEDS: Enoxaparin Sodium 40 MG/0.4 ML SYRINGE SC SCH (08:41)
[2020-03-29] MEDS: Cyanocobalamin (Vitamin B-12) 1,000 MCG TAB PO SCH (08:41)
[2020-03-29] MEDS: Aspirin 81 mg Enteric Coated Tablet PO SCH (08:41)
[2020-03-29] MEDS: Carbidopa/Levodopa 25-100 mg Tablet PO SCH ×2 (08:41→20:26)
[2020-03-29] MEDS: Famotidine/PF 20 mg/2ml Vial SLOW IVP SCH ×2 (08:42→20:26)
--- NOTE | 2020-03-29 11:37 | PDOC.HOSPP ---
- Subjective Encounter Date: 03/29/20 Encounter Time: 09:00 Subjective: F/u: failure to thrive The patient is more drowsy today but does answer questions. She says she feels fine, no complaints. She is still aspirating on water per nurse - Objective Vital Signs & Weight: Vital Signs (12 hours) Temp Pulse Resp BP BP Pulse Ox 03/29/20 09:59 152/75 H 03/29/20 08:30 95 03/29/20 07:56 98.4 F 76 16 184/85 H 95 03/29/20 04:41 97.9 F 88 18 123/71 100 03/29/20 00:00 98.1 F 74 16 156/75 H 92 L Weight Admit Weight 103 lb Weight 103 lb 4.8 oz I&O: 03/28/20 03/29/20 03/30/20 06:59 06:59 06:59 Intake Total 3093 1660 Output Total 2450 800 Balance 643 860 Result Diagrams: 03/27/20 11:04 03/29/20 05:19 Hospitalist ROS - Review of Systems Constitutional: denies: fever, chills - Medication Medications: Active Medications Generic Name Dose Route Start Last Admin Trade Name Freq PRN Reason Stop Dose Admin Acetaminophen 650 mg 03/19/20 00:30 03/20/20 17:25 Acetaminophen 325 Mg Tab PO 650 mg Q4H PRN Administration Headache/Fever/Mild Pain (1-3) Amantadine HCl 100 mg 03/19/20 09:00 03/29/20 08:40 Amantadine Hcl 100 Mg Capsule PO Not Given BID DHARMESH Aspirin 81 mg 03/19/20 09:00 03/29/20 08:41 Aspirin 81 Mg Enteric Coated Tablet PO Not Given DAILY DHARMESH Carbidopa/Levodopa 2 tab 03/27/20 21:00 03/29/20 08:41 Carbidopa/Levodopa 25-100 Mg Tablet PO Not Given BID DHARMESH Cyanocobalamin 1,000 mcg 03/19/20 09:00 03/29/20 08:41 Cyanocobalamin (Vitamin B-12) 1,000 Mcg Tab PO Not Given DAILY DHARMESH Docusate Sodium 100 mg 03/20/20 09:00 03/27/20 11:54 Docusate 100 Mg Cap PO Not Given MWF DHARMESH Enoxaparin Sodium 40 mg 03/19/20 09:00 03/29/20 08:41 Enoxaparin Sodium 40 Mg/0.4 Ml Syringe SC 40 mg 0900 DHARMESH Administration Escitalopram Oxalate 10 mg 03/19/20 09:00 03/26/20 08:15 Escitalopram Oxalate 10 Mg Tablet PO Not Given DAILY DHARMESH Famotidine 20 mg 03/20/20 21:00 03/29/20 08:42 Famotidine/Pf 20 Mg/2ml Vial SLOW IVP 20 mg BID DHARMESH Administration Piperacillin Sod/Tazobactam 100 mls @ 200 mls/hr 03/23/20 14:00 03/29/20 08:40 Sod 3.375 gm/ Sodium Chloride IVPB 100 mls 0200,0800,1400,2000 DHARMESH Administration Amino Acids/Electrolytes/Dextrose 1,000 mls @ 65 mls/hr 03/23/20 15:45 03/28/20 06:33 Clinimix E 4.25/5 IV 1,000 mls INF DHARMESH Administration Potassium Chloride 20 meq 03/24/20 17:00 03/29/20 08:40 Potassium Chloride 20 Meq Packet PO Not Given BID-WM DHARMESH Sodium Chloride 10 ml 03/20/20 21:00 03/29/20 08:43 Flush - Normal Saline 10 Ml Syringe IVF 10 ml Q12HR DHARMESH Administration - Exam General Appearance: NAD, awake alert Eye: PERRL, anicteric sclera ENT - other findings: very dry mouth Neck: supple, symmetric, no JVD Heart: RRR, no murmur, no gallops, no rubs, normal peripheral pulses Respiratory: CTAB, no wheezes, no rales, no ronchi Gastrointestinal: soft, non-tender, non-distended, normal bowel sounds Extremities: no cyanosis, no clubbing, no edema Skin: normal turgor, no lesions, no rashes Neurological: cranial nerve grossly intact, normal sensation to touch, no new deficit Musculoskeletal: normal tone, normal strength, no muscle wasting Hosp A/P - Plan Chest Xray: left lower lobe infiltrate MRI brain: chronic white matter ischemic change This is an 89 year old female with dementia who presented with altered mental status Acute metabolic encephalopathy secondary to UTI and advanced dementia - oriented times one currently - continue IV zosyn day 6 for E coli UTI. MRI brain showed no stroke Severe Protein/Calorie Malnutrition - patient aspirates with food. Son agreeable to diet with risks of aspiration - hospice is going to be setup for home, hospital bed awaiting to be delivered Hypokalemia - potassium 3.1, replace with IV potassium Parkinsons - cinemet reduced to bid, on amantadine as well Anemia - Hb 11.6, stable Dispo plan: discharge to hospice tomorrow
[2020-03-29] MEDS: Ketorolac Tromethamine 30 MG/ML VIAL IVP PRN (20:38)
[2020-03-30] MEDS: Piperacillin/Tazobactam 3.375 GM in Sodium Chloride 0.9% 100 ML IVPB SCH ×3 (02:15→13:05)
[2020-03-30 07:45] VITALS: BP 183/80; TEMP 98
[2020-03-30 08:34] LABS: Anion Gap 12 mmol/L (10-20); BUN (Urea Nitrogen) 19 mg/dL (9.8-20.1); Calc. Creatinine Clearance 60 mL/min (70-130); Calcium 7.8 mg/dL (7.8-10.44); Carbon Dioxide 23 mmol/L (23-31); Chloride 105 mmol/L (98-107); Glucose 113 mg/dL (83-110); Potassium 3.3 mmol/L (3.5-5.1); Sodium 137 mmol/L (136-145)
[2020-03-30] MEDS: Famotidine/PF 20 mg/2ml Vial SLOW IVP SCH (08:56)
[2020-03-30] MEDS: Cyanocobalamin (Vitamin B-12) 1,000 MCG TAB PO SCH (08:56)
[2020-03-30] MEDS: Escitalopram Oxalate 10 mg Tablet PO SCH (08:56)
[2020-03-30] MEDS: Amantadine HCl 100 mg Capsule PO SCH (08:56)
[2020-03-30] MEDS: Carbidopa/Levodopa 25-100 mg Tablet PO SCH (08:56)
[2020-03-30] MEDS: Aspirin 81 mg Enteric Coated Tablet PO SCH (08:56)
[2020-03-30] MEDS: Docusate 100 MG CAP PO SCH (08:56)
[2020-03-30] MEDS: Ketorolac Tromethamine 30 MG/ML VIAL IVP PRN (08:57)
[2020-03-30] MEDS ORDERED: Potassium Chloride 20 MEQ TAB PO SCH (09:45)
--- NOTE | 2020-03-30 19:13 | PDOC.DS.DS ---
Provider - Provider Date of Admission: 03/20/20 10:00 Date of Discharge: 03/30/20 Admitting Provider: Sean Root Primary Care Physician: Unknown Course - Hospital Course Hospital Course: Discharge Diagnoses 1. Acute encephalopathy secondary to UTI versus worsening dementia versus from sinemet 2. Hypokalemia 3. Left lower leg swelling - resolved 4. Anemia Brief HPI: This is an 89 year old lady who presented to the ER with altered me ntal status. THe patient was diagnosed with a UTI four days ago and started on ciprofloxacin with no improvement. She came to the ER for further workup. CT head was normal. UA showed mild UTI, so she was given ceftriaxone in the ER. Hospital Course: Acute encephalopathy secondary to UTI versus worsening dementia versus from medication: . Urine culture grew E coli, resistant to ciprofloxacin and levaquin. The patient received IV zosyn for seven days. She was lethargic intermittently for several days. Her sinemet was decreased from 2 mg po q4 hours to 2 mg bid with some improvement and on 03/28 she was asking for cranberry juice. The patient was advanced to pureed diet however aspirates significantly. Palliative was consulted and family decided on hospice at assisted living facility. She will be discharged with home hospice. Hypokalemia secondary to poor oral intake: the potassium remained 3.1 at the time of discharge. She was discharged on potassium 20 mg po bid and can consider repeat BMP in a week. Left lower leg swelling: doppler ruled out DVT. I did not appreciate edema at the time of discharge. Pertinent Studies: Left lower extremity doppler 03/20: no evidence of DVT CT brain 03/18: no acute findings MRI brain without contrast: mild to moderate chronic ischemic white matter jose luis nges. Chest x ray 03/18: left lower lobe infiltrate. Atherosclerosis. Hyperinflation Chest x ray 03/18: normal Resuscitation Status: 03/20/20 14:02 Resuscitation Status Routine Resuscitation Status: DNAR: NO Resuscitation Discussed with: per pt's son and daughter - Labs Lab Results: 03/27/20 11:04 03/30/20 07:54 Abnormal Lab Results - Last 48 hrs 03/29/20 05:19: Potassium 3.1 L 03/30/20 07:54: Potassium 3.3 L, Creatinine 0.48 L Microbiology - Entire Visit 03/18/20 19:36 Urine voided Urine Culture - Final Escherichia coli - Physical Exam Vitals: Vital Signs (12 hours) Temp Pulse Resp BP Pulse Ox 03/30/20 07:43 98.0 F 68 18 183/80 H 97 Weight Admit Weight 103 lb Weight 103 lb 4.8 oz Physical Exam: The patient was seen and examined on the day of discharge. Physical exam: General: patient is intermittently drowsy, responds to short questions. Appears malnourished ENT: dry oral mucosa CV: RRR, no murmurs, rubs, gallops Lungs: CTAB Abdomen: +BS, soft, nontender, nondistended Extremities: no edema Problem - Time spent with Patient (mins): 35 Plan - Discharge Medications Prescriptions: Carbidopa/Levodopa [Carbidopa-Levodopa 25-100 Tab] 2 tab PO BID #120 tab Potassium Chloride [Klor-Con] 20 meq PO BID-WM #14 pk Home Medications: Medication Instructions Recorded Confirmed Type Acetaminophen [Non-Aspirin] 1 tab PO PRN PRN 03/19/20 03/19/20 History Amantadine HCl [Amantadine] 1 tab PO BID 03/19/20 03/19/20 History Aspirin [Ecotrin Low Strength] 81 mg PO DAILY 03/19/20 03/19/20 History Cyanocobalamin (Vitamin B-12) 1 tab PO DAILY 03/19/20 03/19/20 History [Vitamin B-12] Docusate [Colace] 1 cap PO MWF 03/19/20 03/19/20 History Escitalopram Oxalate [Lexapro] 10 mg PO DAILY 03/19/20 03/19/20 History Magnesium Hydroxide [Milk of 30 ml PO PRN PRN 03/19/20 03/19/20 History Magnesia] Carbidopa/Levodopa 2 tab PO BID #120 tab 03/30/20 Rx [Carbidopa-Levodopa 25-100 Tab] Potassium Chloride [Klor-Con] 20 meq PO BID-WM #14 pk 03/30/20 Rx Allergies: Sulfa (Sulfonamide Antibiotics) Allergy (Verified 03/19/20 02:02) - Discharge Instructions Activity:: Activity as Tolerated Nourishment:: Heart Healthy Diet - Follow up Plan [place] [facility] [place] (Referral has been sent to [facility] and they will coordinate your hospice care services with the staff at the [facility] Unknown,Unknown [Primary Care Provider] - Disposition: HOME Quality - Care Measures CORE MEASURES:: N/A
== END 2020-03-30 13:35 | disposition hospice, home (50) | DRG 56 ==
LOC: ERS 17:46 → T4-B 22:12 → OBSVTOIN 03-20 10:00
PROVIDERS: ADMIT Internal Medicine; ATTEND Internal Medicine
DX: G20 Parkinson's disease (principal); G93.41 Metabolic encephalopathy; E43 Unspecified severe protein-calorie malnutrition; G92 Toxic encephalopathy; N39.0 Urinary tract infection, site not specified; Z16.24 Resistance to multiple antibiotics; E51.9 Thiamine deficiency, unspecified; Z68.1 Body mass index [BMI] 19.9 or less, adult; Z66 Do not resuscitate; Z51.5 Encounter for palliative care; Z20.828 Contact with and (suspected) exposure to other viral communicable diseases; F02.80 Dementia in other diseases classified elsewhere, unspecified severity, without behavioral disturbance, psychotic disturbance, mood disturbance, and anxiety; K21.9 Gastro-esophageal reflux disease without esophagitis; M81.0 Age-related osteoporosis without current pathological fracture; F32.9 Major depressive disorder, single episode, unspecified; D64.9 Anemia, unspecified; T42.8X5A Adverse effect of antiparkinsonism drugs and other central muscle-tone depressants, initial encounter; B96.20 Unspecified Escherichia coli [E. coli] as the cause of diseases classified elsewhere; E87.6 Hypokalemia; Z90.49 Acquired absence of other specified parts of digestive tract; Z90.710 Acquired absence of both cervix and uterus; Z98.51 Tubal ligation status; Z79.82 Long term (current) use of aspirin; Z79.899 Other long term (current) drug therapy; Z88.2 Allergy status to sulfonamides
CPT/HCPCS: 36415; 36416; 70450; 70551; 71045; 80048; 80053; 81003; 81015; 82140; 82550; 83605; 83735; 84132; 84443; 84484; 85025; 87077; 87086; 87186; 87635; 96372; 96374; G0378; J0696; J1650; J1885; J2543; J3420; J3480; J3490; J7042; J7050; S0028; U0003